=== PATIENT | female | born 1940 | race Caucasian/White ===

== ENCOUNTER 2018-07-02 09:31 | Outpatient (CLI) | payer MEDICARE, OTHER, SELFPAY ==
[2018-07-02 10:30] LABS: HCT 37.2 % (36.0-46.0); HGB 12.5 g/dL (12.0-15.5); Mean Corp. HGB Concentration 33.6 g/dL (32.0-36.0); Mean Corpuscular Hemoglobin 34.1 pg (27.0-33.0); Mean Corpuscular Volume 101.4 fL (80-95); Mean Platelet Volume 11.4 fL (8.0-11.0); Platelet Count 200 x1000/uL (130-400); RBC 3.67 m/cumm (4.00-5.20); RBC Distribution Width 14.9 % (11.7-14.6); White Blood Cell Count 9.63 k/cumm (4.4-10.8)
[2018-07-02 11:25] LABS: Anion Gap 11.8 mmol/L (3-11); BUN 41 mg/dL (7-18); CO2 22.2 mmol/L (21.0-32.0); CREATININE 1.45 mg/dL (0.55-1.02); Calcium 9.6 mg/dL (8.5-10.1); Chloride 106 mmol/L (98-107); Estimated GFR 34.92 (mL/min/1.73m2); Glucose 86 mg/dL (70-100); Magnesium 2.1 mg/dL (1.8-2.4); Sodium 140 mmol/L (136-145); TSH (W/Ref FT4) 0.12 uIU/mL (0.358-3.74); Uric Acid 4.7 mg/dL (2.6-6.0)
[2018-07-02 11:45] LABS: FREE T4 1.29 ng/dL (0.76-1.46)
[2018-07-02 11:58] LABS: Hemoglobin A1C 5.9 % (4.5-6.2)
== END 2018-07-02 09:51 ==
PROVIDERS: PCP Family Medicine; Visit Provider Family Medicine
DX: R73.01 Impaired fasting glucose (principal); E89.0 Postprocedural hypothyroidism; N18.3 Chronic kidney disease, stage 3 (moderate); E78.5 Hyperlipidemia, unspecified; E83.42 Hypomagnesemia; M10.9 Gout, unspecified
CPT/HCPCS: 36415; 80048; 85027; 83036; 83735; 84439; 84443; 84550

== ENCOUNTER → 2018-07-25 09:43 | Outpatient (BNVA) | payer MEDICARE, OTHER, SELFPAY | PROVIDERS: PCP Family Medicine; Referring Provider Family Medicine; Visit Provider Surgery | DX: L72.0 Epidermal cyst (principal); L98.0 Pyogenic granuloma; I13.0 Hypertensive heart and chronic kidney disease with heart failure and stage 1 through stage 4 chronic kidney disease, or unspecified chronic kidney disease; N18.3 Chronic kidney disease, stage 3 (moderate); I50.30 Unspecified diastolic (congestive) heart failure; J44.9 Chronic obstructive pulmonary disease, unspecified; Z87.891 Personal history of nicotine dependence | CPT/HCPCS: 99201; 99213 ==

== ENCOUNTER → 2018-09-05 10:46 | Outpatient (BNVA) | payer MEDICARE, OTHER, SELFPAY | PROVIDERS: PCP Family Medicine; Referring Provider Family Medicine; Visit Provider Surgery | DX: L98.9 Disorder of the skin and subcutaneous tissue, unspecified (principal); I12.9 Hypertensive chronic kidney disease with stage 1 through stage 4 chronic kidney disease, or unspecified chronic kidney disease; N18.3 Chronic kidney disease, stage 3 (moderate); J44.9 Chronic obstructive pulmonary disease, unspecified | CPT/HCPCS: 11402 ==

== ENCOUNTER 2018-09-05 12:19 | Outpatient (REF) | payer MEDICARE, OTHER, SELFPAY ==
--- NOTE | 2018-09-05 11:15 | SOFT_PTH ---
PATIENT: Jennifer Stark LOC: N U#:[id number] AGE/SX: 77/F ROOM: RE09/05/[address]: Christine Wright MD : 1940 BED: DIS: 09/05/2018 SPEC #: [id number] RECD: 09/05/18 12:51 STATUS: STEPHANIE REQ #: [id number] RICKY: 09/05/18 11:[address]: Christine Wright DEPT: Surgical Specimen RECD BY: Shannon Anand ENTERED: 09/05/18 12:51 SP TYPE: SOFT OTHR DR: Pham Blackwood Tissues: 1 - SOFT TISSUE MISC (INC. LIPOMA) Procedures: GROSS AND MICRO LEVEL 4 Comments: [id number]
== END 2018-09-05 12:39 ==
LOC: LBN 12:19
PROVIDERS: PCP Family Medicine; Visit Provider Surgery
DX: L98.9 Disorder of the skin and subcutaneous tissue, unspecified (principal); L94.2 Calcinosis cutis
CPT/HCPCS: 88305

== ENCOUNTER 2019-01-01 09:41 | Outpatient (CLI) | payer MEDICARE, OTHER, SELFPAY ==
[2019-01-01 11:17] LABS: Ferritin 227 ng/mL (8-388); TSH (W/Ref FT4) 0.37 uIU/mL (0.358-3.74)
[2019-01-02 13:38] LABS: Parathyroid Hormone,Intact 69 pg/ml (19-88)
== END 2019-01-01 10:01 ==
PROVIDERS: PCP Family Medicine; Visit Provider Family Medicine
DX: R53.83 Other fatigue (principal); E89.0 Postprocedural hypothyroidism; N18.9 Chronic kidney disease, unspecified
CPT/HCPCS: 36415; 82306; 82728; 83970; 84100; 84443

== ENCOUNTER 2019-01-23 01:31 | Outpatient (CLI) | payer MEDICARE, OTHER, SELFPAY ==
--- NOTE | 2019-01-23 10:00 | DI.US_ITS ---
SYMPTOMS/DIAGNOSIS: ABD AORTIC ANEURYSM, I74.4, DIASTOLIC HEART FAILURE, I50.32, MITRAL REGURGITATION, I34.0, FOLLOW UP AAA ABDOMINAL ULTRASOUND LIMITED: Limited ultrasound was performed to evaluate the abdominal aorta. Maximal aortic diameter is 36 x 32 mm in the distal aorta. Mid abdominal aorta measures about 26 mm in greatest diameter which is borderline aneurysmal. There is saccular aneurysm of the distal abdominal aorta which projects anteriorly. No evidence of leaking aneurysm or pseudoaneurysm. No gross interval change in appearance in comparison with previous examination of 01/20/18.
== END 2019-01-23 01:51 ==
PROVIDERS: PCP Family Medicine; Visit Provider Family Medicine
DX: I71.4 Abdominal aortic aneurysm, without rupture (principal); I50.32 Chronic diastolic (congestive) heart failure; I34.0 Nonrheumatic mitral (valve) insufficiency
CPT/HCPCS: 76775

== ENCOUNTER 2019-01-28 00:49 | Outpatient (CLI) | payer MEDICARE, OTHER, SELFPAY ==
--- NOTE | 2019-01-28 14:15 | MERGE_ITS ---
*[facility]* *[facility]* [address] [place] [address] Date of study: 01/28/2019 Transthoracic Echocardiography M-mode, complete 2D, complete spectral Doppler, and color Doppler *STUDY CONCLUSIONS* Summary: 1. Left ventricle: The cavity size was normal. There was moderate concentric hypertrophy. Systolic function was normal. The estimated ejection fraction was 60-65%. Wall motion was normal; there were no regional wall motion abnormalities. Findings consistent with diastolic dysfunction. 2. Aortic valve: There was very mild stenosis. There was mild to moderate regurgitation. Peak velocity (S): 1.5m/sec. VTI ratio of LVOT to aortic valve: 0.56. Valve area (VTI): 1.8cm^2. 3. Mitral valve: Mild thickening and calcification, consistent with rheumatic disease. There was mild to moderate regurgitation. 4. Left atrium: The atrium was mildly dilated. 5. Right ventricle: The cavity size was normal. Wall thickness was normal. Systolic function was normal. *PATIENT PRESENTATION* Height: 157.5cm ((62in) ) S/D Pressure: 122 / 72 Weight: 65.8kg ((144.7lb) ) BSA: 1.71m^2 Test start time: 02:20 PM. Test stop time: 03:20 PM. ORDERING Pham Blackwood REFERRING Pham Blackwood PERFORMING Unknown PERFORMING [facility] SPINDLE TESTER RT Vaishnavi AngelR)(PETTY)TREY *PROCEDURE DATA* Procedure information: The patient was identified by two identifiers. This study was interpreted by [facility]. Pertinent images and digital data are archived for permanent storage and are available for subsequent review. Comparison was made to the study of 01/23/2018. Study status: Routine. Transthoracic echocardiography. M-mode, complete 2D, complete spectral Doppler, and color Doppler. A Transthoracic Echocardiogram was performed. Scanning was performed from the parasternal, apical, subcostal, and suprasternal notch acoustic windows. Images were obtained using an [id number] cardiac ultrasound machine. Image quality was adequate. Study completion: The patient tolerated the procedure well. There were no complications. History: PMH: Aortic stenosis , diastolic HF, mitral regurgitation moderate. I35.0, i50.32, i34.0. *CARDIAC ANATOMY* Left ventricle: The cavity size was normal. There was moderate concentric hypertrophy. Systolic function was normal. The estimated ejection fraction was 60-65%. Wall motion was normal; there were no regional wall motion abnormalities. Findings consistent with diastolic dysfunction. There was no evidence of elevated ventricular filling pressure by Doppler parameters. Aortic valve: Trileaflet; mildly thickened, mildly calcified leaflets. Mobility was not restricted. Doppler: There was very mild stenosis. There was mild to moderate regurgitation. VTI ratio of LVOT to aortic valve: 0.56. Valve area (VTI): 1.8cm^2. Indexed valve area (VTI): 1cm^2/m^2. Peak velocity ratio of LVOT to aortic valve: 0.6. Valve area (Vmax): 1.9cm^2. Indexed valve area (Vmax): 1.1cm^2/m^2. Mean velocity ratio of LVOT to aortic valve: 0.58. Valve area (Vmean): 1.8cm^2. Indexed valve area (Vmean): 1.1cm^2/m^2. Mean gradient (S): 5.2mm Hg. Peak gradient (S): 9.6mm Hg. Aorta: Aortic root: The aortic root was normal in size. Ascending aorta: The ascending aorta was mildly dilated. Mitral valve: Mild thickening and calcification, consistent with rheumatic disease. Mobility was not restricted. Doppler: Transvalvular velocity was within the normal range. There was no evidence for stenosis. There was mild to moderate regurgitation. Valve area by pressure half-time: 1.9cm^2. Indexed valve area by pressure half-time: 1.1cm^2/m^2. Peak gradient (D): 2.3mm Hg. Left atrium: The atrium was mildly dilated. Right ventricle: The cavity size was normal. Wall thickness was normal. Systolic function was normal. Pulmonic valve: The pulmonary valve appears to be grossly normal. Doppler: Transvalvular velocity was within the normal range. There was no evidence for stenosis. There was no significant regurgitation. Peak gradient (S): 2.7mm Hg. Tricuspid valve: Structurally normal valve. Doppler: Transvalvular velocity was within the normal range. There was no evidence for stenosis. There was mild regurgitation. Pulmonary artery: Pulmonary systolic pressure was within the normal range, in the range of 30mm Hg to 35mm Hg. Right atrium: The atrium was normal in size. Pericardium: There was no pericardial effusion. Systemic veins: Inferior vena cava: Well visualized. The vessel was patent and normal in size. The respirophasic diameter changes were in the normal range (greater than or equal to 50%). Baseline ECG: Normal sinus rhythm. Measurements Left ventricle Value 01/22/2018 Reference LV ID, ED, PLAX 3.9 cm 4.4 3.5 - 6.0 LV ID, ES, PLAX 2.5 cm 3.3 2.1 - 4.0 LV PW thickness, ED, PLAX 1.3 cm 1.4 LV end-diastolic volume, 69 ml 82 1-p A2C LV ejection fraction, 1-p 66 % 50 A2C LV end-diastolic volume, 63 ml 50 1-p A4C LV ejection fraction, 1-p 61 % 42 A4C LV e', lateral 0.042 m/sec LV E/e', lateral 18 LV e', medial 0.031 m/sec 0.038 LV E/e', medial 24 29 LV e', average 0.037 m/sec LV E/e', average 21 Ventricular septum Value 01/22/2018 Reference IVS thickness, ED, PLAX 1.3 cm 1.4 LVOT Value 01/22/2018 Reference LVOT ID, A-P 2.0 cm 2.0 LVOT area 3.2 cm^2 3.2 LVOT peak velocity, S 0.92 m/sec 0.96 LVOT mean velocity, S 0.62 m/sec 0.65 LVOT VTI, S 19.5 cm 19.6 LVOT peak gradient, S 3.4 mm Hg 3.7 LVOT mean gradient, S 1.8 mm Hg 2 Stroke volume (SV), LVOT 62 ml 63 DP Stroke index (SV/bsa), 36 ml/m^2 36 LVOT DP Aortic valve Value 01/22/2018 Reference Aortic valve peak 1.5 m/sec 1.5 velocity, S Aortic valve mean 1.08 m/sec 1.04 velocity, S Aortic valve VTI, S 35.0 cm 31.4 Aortic mean gradient, S 5.2 mm Hg 4.9 Aortic peak gradient, S 9.6 mm Hg VTI ratio, LVOT/AV 0.56 0.62 Aortic valve area, VTI 1.8 cm^2 2 Velocity ratio, peak, 0.6 0.62 LVOT/AV Aortic valve area, peak 1.9 cm^2 2 velocity Velocity ratio, mean, 0.58 0.63 LVOT/AV Aortic valve area, mean 1.8 cm^2 2 velocity Aortic valve area/bsa, 1.1 cm^2/m^2 1.1 mean velocity Aortic regurg deceleration 443 cm/s^2 389 Aortic regurg pressure 273 ms 302 half-time Aorta Value 01/22/2018 Reference Aortic root ID, ED 3.6 cm 3.6 Ascending aorta ID, A-P, S 4.0 cm 3.9 Left atrium Value 01/22/2018 Reference LA area, ES, A4C 22.6 cm^2 20.3 8.8 - 23.4 LA area, ES, A2C 19 cm^2 21 LA volume/bsa, ES, 1-p A4C 48 ml/m^2 43 LA volume, ES, 2-p 64 ml 72 LA volume/bsa, ES, 2-p 37 ml/m^2 41 Mitral valve Value 01/22/2018 Reference Mitral E-wave peak 0.76 m/sec 1.13 velocity Mitral A-wave peak 1.44 m/sec 1.78 velocity Mitral deceleration time (H) 394 ms 222 150 - 230 Mitral pressure half-time 114 ms 64 Mitral peak gradient, D 2.3 mm Hg 5.1 Mitral E/A ratio, peak 0.52 0.64 Mitral valve area, PHT, DP 1.9 cm^2 3.4 Pulmonary veins Value 01/22/2018 Reference Pulmonary vein peak 0.36 m/sec 0.51 velocity, S Pulmonary vein peak 0.23 m/sec 0.37 velocity, D Pulmonary vein velocity 1.56 1.37 ratio, peak, S/D Pulmonary vein A-wave 0.54 m/sec 0.29 reversal peak velocity Tricuspid valve Value 01/22/2018 Reference Tricuspid regurg peak 2.7 m/sec 2.9 velocity Tricuspid peak RV-RA 28.4 mm Hg 33.6 gradient Right atrium Value 01/22/2018 Reference RA area, ES, A4C 17.9 cm^2 17.2 8.3 - 19.5 Pulmonic valve Value 01/22/2018 Reference Pulmonic peak gradient, S 2.7 mm Hg 3.1 Legend: (L) and (H) timothy values outside specified reference range. I have personally reviewed the images and have reviewed and edited the reported findings. Electronically signed by Junior Cantu 01/28/2019 16:14
== END 2019-01-28 01:09 ==
PROVIDERS: PCP Family Medicine; Visit Provider Family Medicine
DX: I08.0 Rheumatic disorders of both mitral and aortic valves (principal); I50.32 Chronic diastolic (congestive) heart failure; I51.7 Cardiomegaly
CPT/HCPCS: 93306

== ENCOUNTER 2019-04-13 08:41 | Outpatient (CLI) | payer MEDICARE, OTHER, SELFPAY | END 2019-04-13 09:01 | PROVIDERS: PCP Family Medicine; Visit Provider Internal Medicine Interventional Cardiology | DX: I08.0 Rheumatic disorders of both mitral and aortic valves (principal); I50.9 Heart failure, unspecified; I13.0 Hypertensive heart and chronic kidney disease with heart failure and stage 1 through stage 4 chronic kidney disease, or unspecified chronic kidney disease; N18.3 Chronic kidney disease, stage 3 (moderate); J44.9 Chronic obstructive pulmonary disease, unspecified; Z87.891 Personal history of nicotine dependence | CPT/HCPCS: 99214; 99213 ==

== ENCOUNTER 2019-07-03 10:23 | Outpatient (CLI) | payer MEDICARE, OTHER, SELFPAY ==
[2019-07-03 11:24] LABS: HCT 40.9 % (36.0-46.0); HGB 13.4 g/dL (12.0-15.5); Mean Corp. HGB Concentration 32.8 g/dL (32.0-36.0); Mean Corpuscular Hemoglobin 33.8 pg (27.0-33.0); Mean Platelet Volume 11.5 fL (8.0-11.0); Platelet Count 231 x1000/uL (130-400); RBC 3.97 m/cumm (4.00-5.20); White Blood Cell Count 10.25 k/cumm (4.4-10.8)
[2019-07-03 12:00] LABS: Anion Gap 12.5 mmol/L (3-11); BUN 28 mg/dL (7-18); CO2 22.5 mmol/L (21.0-32.0); CREATININE 1.39 mg/dL (0.55-1.02); Calcium 9.8 mg/dL (8.5-10.1); Chloride 106 mmol/L (98-107); Estimated GFR 36.57 (mL/min/1.73m2); Glucose 85 mg/dL (70-100); PHOSPHORUS 4.4 mg/dL (2.6-4.7); Potassium 5.2 mmol/L (3.5-5.1); Sodium 141 mmol/L (136-145); TSH (W/Ref FT4) 0.19 uIU/mL (0.36-3.74)
[2019-07-03 13:20] LABS: FREE T4 1.26 ng/dL (0.76-1.46)
[2019-07-03 14:05] LABS: Hemoglobin A1C 5.6 % (4.5-6.2)
== END 2019-07-03 10:43 ==
PROVIDERS: PCP Family Medicine; Visit Provider Family Medicine
DX: R73.01 Impaired fasting glucose (principal); E89.0 Postprocedural hypothyroidism; N18.3 Chronic kidney disease, stage 3 (moderate)
CPT/HCPCS: 36415; 80048; 85027; 83036; 84100; 84439; 84443

== ENCOUNTER 2019-10-15 10:18 | Outpatient (CLI) | payer MEDICARE, OTHER, SELFPAY ==
[2019-10-15 12:14] LABS: TSH (W/Ref FT4) 2.55 uIU/mL (0.36-3.74)
== END 2019-10-15 10:38 ==
PROVIDERS: PCP Family Medicine; Visit Provider Family Medicine
DX: E89.0 Postprocedural hypothyroidism (principal)
CPT/HCPCS: 36415; 84443

== ENCOUNTER 2020-04-25 01:59 | Outpatient (CLI) | payer MEDICARE, OTHER, SELFPAY ==
[2020-04-25 12:15] LABS: HCT 37.6 % (36.0-46.0); HGB 12.3 g/dL (11.2-15.7); MCH 33.8 pg (27.0-33.0); MCHC 32.7 % (32.0-36.0); MCV 103.3 fL (80-95); MPV 10.5 fL (8.0-11.0); Platelet Count 233 10^3/uL (130-400); RBC 3.64 10^6/uL (3.93-5.22); RDW 14.9 % (11.7-14.6); RDW-SD 56.8 fL; WBC 11.05 10^3/uL (4.4-10.8)
[2020-04-25 12:24] LABS: Hemoglobin A1C 5.6 % (3.8-5.6)
[2020-04-25 13:33] LABS: Anion Gap 10.1 mmol/L (3-11); BUN 37 mg/dL (7-18); CO2 23.9 mmol/L (21.0-32.0); CREATININE 1.52 mg/dL (0.55-1.02); Calcium 9.4 mg/dL (8.5-10.1); Chloride 102 mmol/L (98-107); Estimated GFR 32.91 (mL/min/1.73m2); Glucose 99 mg/dL (74-106); Potassium 5.6 mmol/L (3.5-5.1); Sodium 136 mmol/L (136-145); TSH (W/Ref FT4) 3.72 uIU/mL (0.36-3.74)
== END 2020-04-25 02:19 ==
PROVIDERS: PCP Family Medicine; Visit Provider Family Medicine
DX: E89.0 Postprocedural hypothyroidism (principal); R73.03 Prediabetes; N18.3 Chronic kidney disease, stage 3 (moderate)
CPT/HCPCS: 36415; 80048; 85027; 83036; 84443

== ENCOUNTER 2020-05-18 03:27 | Outpatient (CLI) | payer MEDICARE, OTHER, SELFPAY ==
[2020-05-18 14:29] LABS: Anion Gap 7.9 mmol/L (3-11); BUN 29 mg/dL (7-18); CO2 22.1 mmol/L (21.0-32.0); CREATININE 1.43 mg/dL (0.55-1.02); Calcium 9.1 mg/dL (8.5-10.1); Chloride 99 mmol/L (98-107); Estimated GFR 35.31 (mL/min/1.73m2); Glucose 108 mg/dL (74-106); Sodium 129 mmol/L (136-145); Vitamin B12 600 pg/mL (193-986)
[2020-05-18 14:38] LABS: Folate > 20.0 ng/mL (8.6-20.0); Potassium 6.3 mmol/L (3.5-5.1)
== END 2020-05-18 03:47 ==
PROVIDERS: PCP Family Medicine; Visit Provider Family Medicine
DX: R53.83 Other fatigue (principal); E87.5 Hyperkalemia; N18.3 Chronic kidney disease, stage 3 (moderate)
CPT/HCPCS: 80048; 82607; 82746

== ENCOUNTER 2020-06-06 03:39 | Outpatient (CLI) | payer MEDICARE, OTHER, SELFPAY ==
[2020-06-06 11:52] LABS: Anion Gap 8.8 mmol/L (3-11); BUN 20 mg/dL (7-18); CO2 27.2 mmol/L (21.0-32.0); CREATININE 1.31 mg/dL (0.55-1.02); Calcium 9.3 mg/dL (8.5-10.1); Chloride 103 mmol/L (98-107); Estimated GFR 39.06 (mL/min/1.73m2); Glucose 83 mg/dL (74-106); Potassium 4.4 mmol/L (3.5-5.1); Sodium 139 mmol/L (136-145)
== END 2020-06-06 03:59 ==
PROVIDERS: PCP Family Medicine; Visit Provider Family Medicine
DX: E87.5 Hyperkalemia (principal)
CPT/HCPCS: 36415; 80048

== ENCOUNTER 2021-01-04 03:25 | Outpatient (CLI) | payer MEDICARE, OTHER, SELFPAY ==
[2021-01-04 13:26] LABS: HGB 14.7 g/dL (11.2-15.7); MCH 32.8 pg (27.0-33.0); MCHC 33.4 % (32.0-36.0); MCV 98.2 fL (80-95); Platelet Count 259 10^3/uL (130-400); RBC 4.48 10^6/uL (3.93-5.22); RDW 15.3 % (11.7-14.6); RDW-SD 54.4 fL; WBC 10.52 10^3/uL (4.4-10.8)
[2021-01-04 13:36] LABS: ESR 65 mm//hr (0-30)
[2021-01-04 13:53] LABS: Hemoglobin A1C 5.6 % (<5.7)
[2021-01-04 14:17] LABS: ALT 16 U/L (14-59); AST 16 U/L (15-37); Albumin 3.1 g/dL (3.4-5.0); Alkaline Phosphatase 72 U/L (46-116); BUN 24 mg/dL (7-18); Bilirubin, Total 0.4 mg/dL (0.2-1.0); CREATININE 1.6 mg/dL (0.55-1.02); Calcium 9.3 mg/dL (8.5-10.1); Chloride 104 mmol/L (98-107); Estimated GFR 30.94 (mL/min/1.73m2); Folate > 20.0 ng/mL (8.6-20.0); Glucose 141 mg/dL (74-106); Magnesium 2.4 mg/dL (1.8-2.4); Potassium 4.1 mmol/L (3.5-5.1); Sodium 139 mmol/L (136-145); TSH (W/Ref FT4) 5.24 uIU/mL (0.36-3.74); Total Protein 7.4 g/dL (6.4-8.2); Vitamin B12 617 pg/mL (193-986)
[2021-01-04 14:34] LABS: FREE T4 1.08 ng/dL (0.76-1.46)
== END 2021-01-04 03:26 | disposition home or self-care (01) ==
LOC: LBO 03:25
PROVIDERS: PCP Family Medicine; Visit Provider Family Medicine
DX: I10 Essential (primary) hypertension (principal); R73.03 Prediabetes; R26.89 Other abnormalities of gait and mobility; R27.0 Ataxia, unspecified; E89.0 Postprocedural hypothyroidism; N18.30 Chronic kidney disease, stage 3 unspecified
CPT/HCPCS: 36415; 80053; 85027; 85652; 82607; 82746; 83036; 83735; 84439; 84443

== ENCOUNTER 2021-07-19 04:43 | Outpatient (CLI) | payer MEDICARE, OTHER, SELFPAY ==
[2021-07-19 16:59] LABS: Hemoglobin A1C 5.6 % (<5.7)
== END 2021-07-19 04:44 | disposition home or self-care (01) ==
LOC: LBO 04:43
PROVIDERS: PCP Family Medicine; Visit Provider Family Medicine
DX: E03.9 Hypothyroidism, unspecified (principal); R73.03 Prediabetes; N18.30 Chronic kidney disease, stage 3 unspecified; M10.9 Gout, unspecified
CPT/HCPCS: 36415; 80048; 83036; 84443; 84550

== ENCOUNTER 2021-08-10 19:13 | Outpatient (REF) | payer MEDICARE, OTHER, SELFPAY ==
[2021-08-10 19:45] LABS: Anion Gap 13.1 mmol/L (3-11); BUN 26 mg/dL (7-18); CO2 23.9 mmol/L (21.0-32.0); CREATININE 1.8 mg/dL (0.55-1.02); Calcium 9.4 mg/dL (8.5-10.1); Chloride 103 mmol/L (98-107); Glucose 130 mg/dL (74-106); Potassium 4.2 mmol/L (3.5-5.1); Sodium 140 mmol/L (136-145); Uric Acid 5.2 mg/dL (2.6-6.0)
== END 2021-08-10 19:14 | disposition home or self-care (01) ==
LOC: LBN 19:13
PROVIDERS: PCP Family Medicine; Visit Provider Family Medicine
DX: M10.9 Gout, unspecified (principal); E89.0 Postprocedural hypothyroidism; N18.30 Chronic kidney disease, stage 3 unspecified; R73.03 Prediabetes; I50.32 Chronic diastolic (congestive) heart failure
CPT/HCPCS: 80048; 84550

== ENCOUNTER 2021-08-29 02:52 | Outpatient (CLI) | payer MEDICARE, OTHER, SELFPAY ==
[2021-08-29 17:21] LABS: HCT 39.8 % (36.0-46.0); HGB 12.7 g/dL (11.2-15.7); MCH 32.1 pg (27.0-33.0); MCHC 31.9 % (32.0-36.0); MCV 100.5 fL (80-95); MPV 10.8 fL (8.0-11.0); Platelet Count 267 10^3/uL (130-400); RBC 3.96 10^6/uL (3.93-5.22); RDW 15.9 % (11.7-14.6); RDW-SD 58.7 fL; WBC 13.31 10^3/uL (4.4-10.8)
[2021-08-29 18:22] LABS: Iron 52 ug/dL (50-170); Total Iron Binding Capacity 315 ug/dL (250-450); Transferrin Sat 17 % (15-50)
[2021-08-29 18:27] LABS: COMMENT (LAB VIEW ONLY) 61.36 mg/dL
[2021-08-29 18:39] LABS: Anion Gap 11.6 mmol/L (3-11); BUN 26 mg/dL (7-18); CO2 25.4 mmol/L (21.0-32.0); CREATININE 1.6 mg/dL (0.55-1.02); Calcium 9.1 mg/dL (8.5-10.1); Chloride 100 mmol/L (98-107); Estimated GFR 30.94 (mL/min/1.73m2); Ferritin 136 ng/mL (8-252); Glucose 89 mg/dL (74-106); Potassium 4.4 mmol/L (3.5-5.1); Sodium 137 mmol/L (136-145)
[2021-08-29 18:55] LABS: PHOSPHORUS 4.5 mg/dL (2.6-4.7)
[2021-08-31 01:38] LABS: Vitamin D 25 Total 21.4 ng/mL (30-100)
[2021-08-31 09:13] LABS: Parathyroid Hormone,Intact 156 pg/mL (19-88)
== END 2021-08-29 02:53 | disposition home or self-care (01) ==
LOC: LBO 02:52
PROVIDERS: PCP Family Medicine; Visit Provider Family Medicine
DX: N18.4 Chronic kidney disease, stage 4 (severe) (principal)
CPT/HCPCS: 36415; 80048; 82306; 85027; 82043; 82570; 82728; 83540; 83550; 83970; 84100

== ENCOUNTER 2021-08-30 06:51 | Inpatient (IN) | payer MEDICARE, OTHER, SELFPAY ==
[2021-08-30] VITALS (63 sets, daily range): BP systolic 128–187; BP diastolic 64–95; PULSE 56–102; RESP 11–30; TEMP 35.2–36.6; O2SAT 90–98
--- NOTE | 2021-08-30 06:45 | RT.EKG_ITS ---
APPROVED REPORT Exam: Resting ECG Reason for Exam: sob Patient Location: E HR:81 bpm ECG Measurements Heart Rate 81 AXIS WY [id number] P 0 QRSd 86 QRS -18 QT 397 T 15 QTc 460 Conclusion AV dissociation...[place] variation>15% significant motion artifact but no stemi
--- NOTE | 2021-08-30 07:00 | DI.RAD_ITS ---
Exam(s) XR PORTABLE CHEST AP EXAM: XR PORTABLE CHEST AP CLINICAL HISTORY: sob, chf, cough TECHNIQUE: 2D digital imaging was performed of the chest. One image was obtained. An AP view was ob tained. COMPARISON: CR RIGHT RIBS TO INCLUDE CXR from 06/01/2013 CR RIGHT RIBS TO INCLUDE CXR from 06/01/2013 FINDINGS: MEDIASTINUM: Normal. HEART: Upper limits of normal in size. PULMONARY VASCULATURE: There is pulmonary venous congestion. LUNGS: Bilateral interstitial prominence is present. No focal consolidating infiltrate is seen. PLEURAL SPACE: No pleural effusion or pneumothorax. BONE:Within normal limits for the patient's age. OTHER FINDINGS:Normal. IMPRESSION: 1. Pulmonary venous congestion with bilateral interstitial edema. 2. No focal consolidating infiltrate. DATA REPOSITORY: RADIATION DOSE DELIVERED:
[2021-08-30] MEDS: Aspirin 81 MG CHEW 324 MG CH (07:20)
[2021-08-30 07:40] LABS: Source Nasal/Nares
--- NOTE | 2021-08-30 07:42 | W.ED.GENAD ---
Discharge Plan Disposition Patient Disposition: [facility] INPATIENT Condition: Improving Discharge Details Clinical Impression: Acute respiratory distress, Pulmonary edema, Acute combined systolic (congestive) and diastolic (congestive) heart failure Admit Date/Time: 08/30/21 10:11 Admit Provider: Antonietta Gipson Attending Provider: Antonietta Gipson Primary Care Provider: Pham Blackwood ED Provider: Jb Martell Discharge Data Discharge Date/Time-TO BE ENTERED AT DEPARTURE: 08/30/21 12:14 Medical Decision Making <Uriel Sparks DO - Last Filed: 08/31/21 07:24> 80-year-old female with a past medical history of renal disease, hypertension, high cholesterol, abdominal aortic aneurysm, aortic stenosis, gout, COPD, presents today for evaluation of shortness of breath. Patient states that for the last 2 weeks she has had shortness of breath. Is gradually been worsening. For the last few days she has been unable to lie flat because of feeling like she cannot breathe. [facility] was called when she was in notable respiratory distress. Upon EMS arrival the patient was satting in the high 70s. With a notable work of breathing. Patient was given 3 nitroglycerin as her blood pressure was over 200 systolic. She had notable improvement of her symptoms with this, and was brought to the ER for further management. After nitroglycerin she was titrated down to 6 L of supplemental oxygen and was saturating in the mid 90s. She is feeling much better. She denies any chest pain but does admit to mild difficulty breathing. She does admit to cough over the last few days. She denies any fever or chills. She has not been vaccinated for Covid. No other complaints this time. She denies any recent leg swelling. Physical exam demonstrates well-appearing female, currently on 6 L saturating in the mid 90s. Lung sounds demonstrate crackles in the bases. Bedside ultrasound shows trace pericardial effusion, moderate ejection fraction. No significant pitting edema in the shins, she does have mild +1 pitting edema in the feet. Vascular exam is otherwise unremarkable. No evidence of significant neurovascular compromise. Symptoms appear inconsistent with AAA or dissection at this time clinically. Concern for CHF exacerbation and/or fluid overloaded secondary to cardiorenal syndrome. The patient's blood pressure is still in the 190s, with her work of breathing I do feel that starting a nitroglycerin drip is indicated at this time as she had a notable improvement with the 3 sublingual nitros. We will evaluate for concerning etiologies, monitor closely and reassess. Patient will be signed out to my colleague Dr. Jb Martell for follow-up on labs and imaging. <Jb Martell MD - Last Filed: 08/30/21 10:53> pt's labs show wbc of 15, [place] [id number] and xray on my read shows interstitial edema with possible right lower lobe infiltrate, she does state she has felt a cough intermittently, will cover her with ceftriaxone and azithromycin and IV lasix ordered. Her nitro infusion apparently started to infiltrate, will place transdermal nitro ointment. Denies any chest pain on my exam. Will obtain delta troponin. Discussed with hospitalist who accepts for admission for further observation and management ECG Data Attestation: I personally reviewed and interpreted this ECG (s) as follows: Prior ECG tracings: available for review Interpretation: significant motion artifact but sinus rhythm, rate of 81, no acute st t wave ischemic findings\ 2nd ekg sinus rhythm, rate of 70 no stemi HPI <Uriel Sparks DO - Last Filed: 08/31/21 07:24> General Date/Time Provider Initiated Documentation: 08/30/21 07:00. HPI Narrative: 80-year-old female with a past medical history of renal disease, hypertension, high cholesterol, abdominal aortic aneurysm, aortic stenosis, gout, COPD, presents today for evaluation of shortness of breath. Patient states that for the last 2 weeks she has had shortness of breath. Is gradually been worsening. For the last few days she has been unable to lie flat because of feeling like she cannot breathe. [facility] was called when she was in notable respiratory distress. Upon EMS arrival the patient was satting in the high 70s. With a notable work of breathing. Patient was given 3 nitroglycerin as her blood pressure was over 200 systolic. She had notable improvement of her symptoms with this, and was brought to the ER for further management. After nitroglycerin she was titrated down to 6 L of supplemental oxygen and was saturating in the mid 90s. She is feeling much better. She denies any chest pain but does admit to mild difficulty breathing. She does admit to cough over the last few days. She denies any fever or chills. She has not been vaccinated for Covid. No other complaints this time. She denies any recent leg swelling. Related Data Home Medications Medication Instructions Recorded Confirmed allopurinol 100 mg PO BID NS 04/03/13 08/30/21 aspirin 81 mg PO DAILY NS 04/03/13 08/30/21 atenolol 100 mg PO DAILY #1 NS 04/03/13 08/30/21 [id number]-Sw-hyqm-minerals 1 ea PO DAILY NS 04/03/13 08/30/21 [Essential Daily] budesonide 3 mg 3 mg PO DAILY PRN 07/18/18 08/30/21 capsule,delayed,extended release levothyroxine 88 mcg capsule 88 mcg PO DAILY 07/18/18 08/30/21 magnesium chloride 71.5 mg 71.5 mg PO BID tab 07/18/18 08/30/21 (magnesium chloride) tablet,delayed release Allergies Allergy/AdvReac Type Severity Reaction Status Date / Time lisinopril AdvReac Intermediate cough Unverified 08/30/21 07:06 General Stated Complaint: SOB RASHIDA: 2 Review of Systems <Uriel Sparks DO - Last Filed: 08/31/21 07:24> All systems reviewed & are unremarkable except as noted in HPI and below PFSH <Uriel Sparks DO - Last Filed: 08/31/21 07:24> Active Problem List (Updated 08/31/21 @ 07:24 by Uriel Sparks DO) Hypertensive emergency (Acute) Tobacco abuse (Acute) Discharge planning issues (Acute) DVT prophylaxis (Acute) Chest discomfort (Acute) Acute combined systolic (congestive) and diastolic (congestive) heart failure (Acute) Acute respiratory failure with hypoxia (Acute) Acute respiratory distress (Acute) Pulmonary edema (Acute) Medical History (Updated 08/31/21 @ 07:24 by Uriel Sparks DO) Abdominal aortic aneurysm Aortic stenosis Chronic insomnia Collagenous colitis Diastolic heart failure Elevated sed rate Gout History of hepatitis History of thyroid cancer History of tobacco abuse Hyperlipidemia Hypermagnesemia Hypertension Impaired fasting glucose Kidney disease, chronic, stage III (GFR 30-59 ml/min) Macrocytosis Mitral regurgitation 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 Surgical History (Updated 08/30/21 @ 17:46 by Antonietta Gipson MD) H/O excision of epidermal inclusion cyst Family History (Updated 08/30/21 @ 17:46 by Antonietta Gipson MD) Brother Cancer prostate cancer Brother Heart disease Brother ESRD (end stage renal disease) Social History (Updated 08/30/21 @ 17:47 by Antonietta Gipson MD) Smoking/Tobacco Use Status: Current every day Tobacco Type: cigarettes Smoking packs per day: 0.5 Smoking cigarettes per day: 10.0 Years smoked: 61 Smoking pack-years: 30.50 Tobacco: How many years used: 61 Counseling given: provider counseling and support medications Smoking risk assessment performed?: Yes Alcohol Intake: never Drug use: Never Substance use type: does not use Do you feel safe at home: Yes Do you feel safe in your relationship?: Yes Exam <Uriel Sparks DO - Last Filed: 08/31/21 07:24> Narrative Exam Narrative: 1.Const: Well-nourished, Well-developed, appearing stated age 2.Eyes: PERRL, no conjunctival injection, and symmetrical lids. 3.ENT: Atraumatic external nose and ears. Moist MM. Neck: Symmetric, trachea midline, No thyromegaly. 4.CVS: +S1/S2, No murmurs or gallops. Peripheral pulses 2+ and equal in all extremities. Brisk capillary refill in all extremities. 5.RESP: Unlabored respiratory effort. Minimal crackles in the bases, no wheezes or rhonchi. 6.GI: Soft, Nontender/Nondistended, No hepatosplenomegaly. No guarding or rebound. No bounding or pulsatile abdomen. 7.MSK: Normocephalic/Atraumatic, Extremities w/o deformity or ttp No cyanosis or clubbing, Normal movement of all extremities, no pitting edema in lower extremities. Minimal trace pitting edema in the feet though. 8.Skin: Warm, Dry. No rashes or lesions. 9.Neuro: roll bucker II-XII grossly intact. Sensation grossly intact, no focal neurologic deficits. 10.Psych: (AAO) x3. Appropriate mood and affect Course <Uriel Sparks DO - Last Filed: 08/31/21 07:24> Vital Signs Vital signs: Vital Signs Temperature 36.2 C L 08/30/21 06:50 Pulse 81 12/08/21 06:50 Respiratory Rate 17 08/30/21 06:50 Blood Pressure 180/93 H 08/30/21 06:50 Pulse Oximetry 92 08/30/21 06:50 Temperature 36.2 C L 08/30/21 06:50 Temperature Source Skin 08/30/21 06:50 Pulse 81 08/30/21 06:50 Respiratory Rate 17 08/30/21 06:50 Respiratory Effort Non-Labored 08/30/21 07:25 Respiratory Pattern Normal 08/30/21 07:10 Blood Pressure 180/93 H 08/30/21 06:50 Blood Pressure Position Sitting 08/30/21 06:50 Pulse Oximetry 92 08/30/21 06:50 Oxygen Delivery Method Nasal Cannula 08/30/21 06:50 Oxygen Flow Rate 6 08/30/21 06:50 Pain Level 0 08/30/21 06:50 Lab/Test Results Lab/Test Results: Laboratory Tests Range/Units 08/30/21 07:05 COVID-19 Source Nasal/Nares Critical Care Time <Uriel Sparks DO - Last Filed: 08/31/21 07:24> Critical Care Time Critical Care Time: Yes Total Critical Care Time: 35 Attestation: Upon my evaluation, this patient had a high probability of imminent or life-threatening deterioration, which required my direct attention, intervention, and personal management. I have personally provided 35 minutes of critical care time exclusive of time spent on separately billable procedures. Time includes review of laboratory data, radiology results, discussion with consultants, and monitoring for potential decompensation. Interventions were performed as documented. Sign Out <Uriel Sparks DO - Last Filed: 08/31/21 07:24> Sign Out Data: Sign Out Comment: f/u labs and imaging Last updated by Uriel Sparks DO at 08/30/21 07:55
[2021-08-30 07:57] LABS: Abs Immature Grans 0.04 10^3/uL (0.0-0.06); Absolute Basophil Count 0.09 10^3/uL (0.0-0.2); Absolute Monocyte Count 0.91 10^3/uL (0.1-0.8); Basophils % 0.6; Eosinophils % 0.7; HCT 38.3 % (36.0-46.0); HGB 12.4 g/dL (11.2-15.7); Immature Grans % 0.3; Lymphocytes % 13.3; MCHC 32.4 % (32.0-36.0); MPV 10.3 fL (8.0-11.0); Neutrophils % 79.1; Nucleated RBC 0 %; Platelet Count 281 10^3/uL (130-400); RBC 3.87 10^6/uL (3.93-5.22); RDW 15.6 % (11.7-14.6); RDW-SD 56.4 fL; WBC 15.24 10^3/uL (4.4-10.8)
[2021-08-30 07:58] LABS: Absolute Eosinophil Count 0.11 10^3/uL (0.0-0.7); Absolute Lymphocyte Count 2.03 10^3/uL (1.2-3.4); Absolute Neutrophil Count 12.05 10^3/uL (1.2-6.7); BE (Venous) 2 mmol/L (-2-3); HCO3 (Venous) 26 mmol/L (23-28); O2 Sat (Venous) 68 %; TCO2 (Venous) 24 mmol/L (24-29); pCO2 (Venous) 42 mmHg (41-51); pH (Venous) 7.41 (7.31-7.41); pO2 (Venous) 35 mmHg
[2021-08-30] MEDS: nitroGLYcerin in D5W 50 MG/250 ML BTL 7.5 MG IV (08:03)
[2021-08-30 08:18] LABS: COVID-19 PCR Negative (Negative)
[2021-08-30 08:24] LABS: ALT 13 U/L (14-59); AST 14 U/L (15-37); Albumin 3.3 g/dL (3.4-5.0); Alkaline Phosphatase 67 U/L (46-116); Anion Gap 11.1 mmol/L (3-11); BUN 26 mg/dL (7-18); Bilirubin, Total 0.6 mg/dL (0.2-1.0); CO2 25.9 mmol/L (21.0-32.0); CREATININE 1.5 mg/dL (0.55-1.02); Calcium 9.2 mg/dL (8.5-10.1); Chloride 102 mmol/L (98-107); Estimated GFR 33.33 (mL/min/1.73m2); Glucose 111 mg/dL (74-106); Potassium 4.3 mmol/L (3.5-5.1); Sodium 139 mmol/L (136-145); Total Protein 7.4 g/dL (6.4-8.2)
[2021-08-30] MEDS: cefTRIAXone 2 GM/50 ML BAG IVPB (08:47)
[2021-08-30 08:55] LABS: NT-proBNP 32800 pg/mL (<300); Troponin I < 0.05 ng/mL (<0.06)
[2021-08-30] MEDS: AZITHROMYCIN 500 MG in Normal Saline 250 ML 250 MG IVPB (09:22)
[2021-08-30] MEDS: Furosemide 40 MG/4 ML VIAL IVP ×2 (09:23→16:15)
[2021-08-30] MEDS: nitroGLYcerin 2% 1 INCH/1 GM PKT TP (09:49)
--- NOTE | 2021-08-30 10:30 | RT.EKG_ITS ---
APPROVED REPORT Exam: Resting ECG Reason for Exam: chest pain Patient Location: E HR:70 bpm ECG Measurements Heart Rate 70 AXIS MO 204 P -32 QRSd 84 QRS -25 QT 454 T -2 QTc 492 Conclusion Sinus rhythm...normal P axis, V-rate 60- 99
[2021-08-30 11:49] LABS: Troponin I < 0.05 ng/mL (<0.06)
--- NOTE | 2021-08-30 11:50 | W.PM.HP.N ---
Date of service: 08/30/21 Time of Service: 11:51 Assessment and Plan Assessment and plan (1) Acute combined systolic (congestive) and diastolic (congestive) heart failure: Status: Acute Assessment and plan: Continue diuresis initiated in the ED. Systolic dysfunction and diffuse hypokinesis are new and will need ischemic workup. Monitor on tele. Trend troponins and r/o ACS. Monitor I/Os and daily weights. (2) Hypertensive emergency: Status: Acute Assessment and plan: It is not entirely clear why the patient's BP meds were discontinued, but she is proving to require them now. Resume prior home medications. The patient states that she only takes atenolol. She used to be on amlodipine and losartan and spironolactone, but was told to stop them by PCP, per her. (3) Acute respiratory failure with hypoxia: Status: Acute Assessment and plan: Due to above - as above Wean O2 as tolerated. (4) CAP (community acquired pneumonia): Status: Suspected Assessment and plan: Difficult to rule out PNA on CXR on admission and, w/ leucocytosis, agree with treating it at this time, but will check procalcitonin. (5) Chest discomfort: Status: Acute Assessment and plan: R/o ACS. Monitor on tele. Will need ischemic w/u. (6) Tobacco abuse: Status: Acute Assessment and plan: Advised to quit. Provide nicotine replacement. (7) Discharge planning issues: Status: Acute Assessment and plan: DNR/DNI (8) DVT prophylaxis: Status: Acute Assessment and plan: Enoxaparin SC History of Present Illness History of Present Illness Chief Complaint: shortness of breath in bed Narrative: Ms Stark is an 80 year old female with PMHx of chronic diastolic CHF, HTN, hyperlipidemia, tobacco abuse, who presented to [facility] ED with two weeks of shortness of breath, especially worse over the last two days. The shortness of breath was happening at rest, but was worse with laying down and with activity. She has been sleeping in a recliner. The patient describes her usual nonproductive cough and no fevers. Last night she had an episode of chest discomfort during which she felt sweaty, had palpitations, was nauseated, stated that it hurt, and thought she might faint. This is the only time she has ever had this. Her workup in the ED was consistent with acute pulmonary edema. She was hypertensive with SBP in 180s. She required 6L of O2 by PA at the time of arrival to saturate in low 90s. The patient responded to nitroglycerin and furosemide with significantly improved work of breathing. She also had evidence of leucocytosis with concerns for underlying CAP. For this she was initiated on azithromycin and ceftriaxone. She tested negative for COVID-19. She has now been weaned down to 3.5 L of O2 by PA. Hospitalist admission was requested. Review of Systems All systems reviewed & are unremarkable except as noted in HPI and below [facility] Active Problem List (Updated 08/30/21 @ 18:01 by Antonietta Gipson MD) Hypertensive emergency (Acute) Tobacco abuse (Acute) Discharge planning issues (Acute) DVT prophylaxis (Acute) Chest discomfort (Acute) Acute combined systolic (congestive) and diastolic (congestive) heart failure (Acute) Acute respiratory failure with hypoxia (Acute) Acute respiratory distress (Acute) Pulmonary edema (Acute) Medical History (Updated 08/30/21 @ 18:01 by Antonietta Gipson MD) Abdominal aortic aneurysm Aortic stenosis Chronic insomnia Collagenous colitis Diastolic heart failure Elevated sed rate Gout History of hepatitis History of thyroid cancer History of tobacco abuse Hyperlipidemia Hypermagnesemia Hypertension Impaired fasting glucose Kidney disease, chronic, stage III (GFR 30-59 ml/min) Macrocytosis Mitral regurgitation 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 Surgical History (Updated 08/30/21 @ 17:46 by Antonietta Gipson MD) H/O excision of epidermal inclusion cyst Family History (Updated 08/30/21 @ 17:46 by Antonietta Gipson MD) Brother Cancer prostate cancer Brother Heart disease Brother ESRD (end stage renal disease) Social History (Updated 08/30/21 @ 17:47 by Antonietta Gipson MD) Smoking/Tobacco Use Status: Current every day Tobacco Type: cigarettes Smoking packs per day: 0.5 Smoking cigarettes per day: 10.0 Years smoked: 61 Smoking pack-years: 30.50 Tobacco: How many years used: 61 Counseling given: provider counseling and support medications Smoking risk assessment performed?: Yes Alcohol Intake: never Drug use: Never Substance use type: does not use Do you feel safe at home: Yes Do you feel safe in your relationship?: Yes Meds Allergies and Home Medications Allergies Allergy/AdvReac Type Severity Reaction Status Date / Time lisinopril AdvReac Intermediate cough Unverified 08/30/21 07:06 Home Medications Medication Instructions Recorded Confirmed Type allopurinol 100 mg PO BID NS 04/03/13 08/30/21 History aspirin 81 mg PO DAILY NS 04/03/13 08/30/21 History atenolol 100 mg PO DAILY #1 NS 04/03/13 08/30/21 History akmfygkhafrm-Kc-mfmr-minerals 1 ea PO DAILY NS 04/03/13 08/30/21 History [Essential Daily] budesonide 3 mg 3 mg PO DAILY PRN 07/18/18 08/30/21 History capsule,delayed,extended release levothyroxine 88 mcg capsule 88 mcg PO DAILY 07/18/18 08/30/21 History magnesium chloride 71.5 mg 71.5 mg PO BID tab 07/18/18 08/30/21 History (magnesium chloride) tablet,delayed release Exam Narrative Exam Narrative: General: Very pleasant elderly female who wakes up easily when I enter the room, A&Ox3, laying in bed at about 30 degree angle with 3.5 L of O2 on, no dyspnea/tachypnea/cyanosis Neurological: A&ox3, no focal deficits Psychiatric: Appropriate speech pattern/content Skin: Visible skin intact HEENT: Atraumatic, normocephalic, EOMI, MMM, clear oropharynx, no submandibular or cervical lymphadenopathy, no goiter or JVD Cardiovascular: RRR, no m/r/g Lungs: Diminished breath sounds at B bases, no rales/rhonchi Gastrointestinal: soft, nontender, nondistended Genitourinary: deferred Extremities: no edema BLE's Results Imaging Additional studies: CXR: 1. Pulmonary venous congestion with bilateral interstitial edema. 2. No focal consolidating infiltrate. Echo: LVEF 40-45%, diffuse hypokinesis, moderate aortic regurg, moderate mitral regurgitation. EKG: NSR, HR 81, no acute ischemia EKG: HR 70, unchanged Labs Result diagrams: 08/30/21 07:50 08/30/21 07:50 Labs: Laboratory Results - last 24 hr 08/30/21 08/30/21 08/30/21 07:05 07:50 07:50 WBC 15.24 H RBC 3.87 L Hgb 12.4 Hct 38.3 MCV 99.0 H MCH 32.0 MCHC 32.4 RDW 15.6 H Plt Count 281 MPV 10.3 Immature Gran % 0.3 Neutrophils % 79.1 Lymphocytes % 13.3 Monocytes % 6.0 Eosinophils % 0.7 Basophils % 0.6 Nucleated RBC % 0 Absolute Neutrophils 12.05 H Absolute Lymphocytes 2.03 Absolute Monocytes 0.91 H Absolute Eosinophils 0.11 Absolute Basophils 0.09 VBG pH VBG pCO2 VBG pO2 VBG HCO3 VBG Total CO2 VBG O2 Saturation VBG Base Excess Sodium 139 Potassium 4.3 Chloride 102 Carbon Dioxide 25.9 Anion Gap 11.1 H BUN 26 H Creatinine 1.5 H Estimated GFR/1.73 m2 33.33 Glucose 111 H Calcium 9.2 Total Bilirubin 0.6 AST 14 L ALT 13 L Alkaline Phosphatase 67 Troponin I < 0.05 NT-Pro-B Natriuret Pep 28919 H Total Protein 7.4 Albumin 3.3 L COVID-19 Source Nasal/Nares SARS-CoV-2 (PCR) Negative 08/30/21 08/30/21 07:50 10:57 WBC RBC Hgb Hct MCV MCH MCHC RDW Plt Count MPV Immature Gran % Neutrophils % Lymphocytes % Monocytes % Eosinophils % Basophils % Nucleated RBC % Absolute Neutrophils Absolute Lymphocytes Absolute Monocytes Absolute Eosinophils Absolute Basophils VBG pH 7.41 VBG pCO2 42 VBG pO2 35 VBG HCO3 26 VBG Total CO2 24 VBG O2 Saturation 68 VBG Base Excess 2 Sodium Potassium Chloride Carbon Dioxide Anion Gap BUN Creatinine Estimated GFR/1.73 m2 Glucose Calcium Total Bilirubin AST ALT Alkaline Phosphatase Troponin I < 0.05 NT-Pro-B Natriuret Pep Total Protein Albumin COVID-19 Source SARS-CoV-2 (PCR) Last Vital Signs Temp 36.2 C L 08/30/21 06:50 Pulse 68 08/30/21 10:00 Resp 14 08/30/21 10:01 BP 142/82 H 08/30/21 10:00 Pulse Ox 95 08/30/21 10:01
[2021-08-30] MEDS: Acetaminophen 325 MG TAB PO ×2 (12:59→19:42)
[2021-08-30 14:30] LABS: Magnesium 2.5 mg/dL (1.8-2.4)
[2021-08-30] MEDS: Enoxaparin 40 MG/0.4 ML SYR SC (14:31)
[2021-08-30] MEDS: Normal Saline Flush 10 ML SYR IVP ×2 (16:15→19:42)
[2021-08-30] MEDS: Allopurinol 100 MG TAB PO (19:42)
[2021-08-30] MEDS: DOXYCYCLINE 100 MG in Normal Saline 100 ML IVPB (20:04)
[2021-08-30] MEDS: Normal Saline 500 ML 30 ML IV (20:04)
[2021-08-30 20:43] LABS: Troponin I < 0.05 ng/mL (<0.06)
[2021-08-30] MEDS: Pravastatin 20 MG TAB 10 MG PO (21:22)
[2021-08-31] VITALS (11 sets, daily range): BP systolic 133–168; BP diastolic 67–89; PULSE 57–69; RESP 14–20; TEMP 36.2–37; O2SAT 93–96
[2021-08-31] MEDS: Levothyroxine 88 MCG TAB PO (06:26)
[2021-08-31 07:52] LABS: Abs Immature Grans 0.02 10^3/uL (0.0-0.06); Absolute Basophil Count 0.11 10^3/uL (0.0-0.2); Absolute Eosinophil Count 0.15 10^3/uL (0.0-0.7); Absolute Lymphocyte Count 3.08 10^3/uL (1.2-3.4); Absolute Monocyte Count 0.79 10^3/uL (0.1-0.8); Absolute Neutrophil Count 7.01 10^3/uL (1.2-6.7); Eosinophils % 1.3; HCT 35.2 % (36.0-46.0); HGB 11.4 g/dL (11.2-15.7); Immature Grans % 0.2; Lymphocytes % 27.6; MCH 31.9 pg (27.0-33.0); MCHC 32.4 % (32.0-36.0); MCV 98.6 fL (80-95); MPV 10.4 fL (8.0-11.0); Monocytes % 7.1; Neutrophils % 62.8; Nucleated RBC 0 %; Platelet Count 267 10^3/uL (130-400); RBC 3.57 10^6/uL (3.93-5.22); RDW 15.4 % (11.7-14.6); RDW-SD 55.6 fL; WBC 11.16 10^3/uL (4.4-10.8)
[2021-08-31] MEDS: cefTRIAXone 2 GM/50 ML BAG IVPB (08:31)
[2021-08-31 08:33] LABS: Anion Gap 11.3 mmol/L (3-11); BUN 26 mg/dL (7-18); CO2 25.7 mmol/L (21.0-32.0); CREATININE 1.8 mg/dL (0.55-1.02); Calcium 9.1 mg/dL (8.5-10.1); Chloride 103 mmol/L (98-107); Glucose 84 mg/dL (74-106); Potassium 3.7 mmol/L (3.5-5.1); Sodium 140 mmol/L (136-145)
[2021-08-31] MEDS: Furosemide 40 MG/4 ML VIAL IVP ×2 (08:34→15:30)
[2021-08-31] MEDS: Spironolactone 25 MG TAB 12.5 MG PO (08:36)
[2021-08-31] MEDS: Multivitamin w/Minerals TAB 1 TAB PO (08:36)
[2021-08-31] MEDS: amLODIPine 5 MG TAB PO (08:37)
[2021-08-31] MEDS: Atenolol 50 MG TAB 100 MG PO (08:37)
[2021-08-31] MEDS: Aspirin E.C. 81 MG TABEC PO (08:37)
[2021-08-31] MEDS: Losartan 50 MG TAB 100 MG PO (08:38)
[2021-08-31] MEDS: Allopurinol 100 MG TAB PO ×2 (08:39→20:45)
[2021-08-31] MEDS: Magnesium Chloride 64 MG TABCR PO ×2 (08:39→20:44)
--- NOTE | 2021-08-31 08:51 | PDOC.CMIN ---
- If Service Date Differs Date of service: 08/31/21 Time of Service: 08:51 Care Management Initial Assess REASON FOR HOSPITALIZATION:: Acute CHF, Hypertensive Emergency, CAP PAST MEDICAL HISTORY/PAST SURGICAL HISTORY:: Active Problem List (Updated 08/30/21 @ 18:01 by Antonietta Gipson MD). Hypertensive emergency (Acute). Tobacco abuse (Acute). Discharge planning issues (Acute). DVT prophylaxis (Acute). Chest discomfort (Acute). Acute combined systolic (congestive) and diastolic (congestive) heart failure (Acute). Acute respiratory failure with hypoxia (Acute). Acute respiratory distress (Acute). Pulmonary edema (Acute). Medical History (Updated 08/30/21 @ 18:01 by Antonietta Gipson MD). Abdominal aortic aneurysm. Aortic stenosis. Chronic insomnia. Collagenous colitis. Diastolic heart failure. Elevated sed rate. Gout. History of hepatitis. History of thyroid cancer. History of tobacco abuse. Hyperlipidemia. Hypermagnesemia. Hypertension. Impaired fasting glucose. Kidney disease, chronic, stage III (GFR 30-59 ml/min). Macrocytosis. Mitral regurgitation. Post-surgical hypothyroidism. Stage 2 moderate COPD by GOLD classification. Surgical History (Updated 08/30/21 @ 17:46 by Antonietta Gipson MD). H/O excision of epidermal inclusion cyst PREVIOUS FUNCTIONAL STATUS/SOCIAL/FAMILY SUPPORTS:: Jennifer lives alone in [place]. She does not drive, however her daughter and grand daughter live next door and are very supportive. Jennifer watches her great daughters during the day. She is independent at baseline. CURRENT FUNCTIONAL STATUS:: Jennifer was lying in bed when CM met with her. She was pleasant and easily engaged in conversation. She has no concerns other than she is missing her nielson slippers, which she last saw in the ER. CM notified ER staff and they will bring them to her if they are found. ADVANCE DIRECTIVES:: On file, [facility] is Demetrice Ledesma Has patient been provided with info about the portal/API?: Yes Did the patient sign up for the portal?: No CODE STATUS:: DNR/DNI INSURANCE COVERAGE / FINANCIAL ISSUES:: [employer]. Medicare CURRENT HOME/COMMUNITY SERVICES/EQUIPMENT:: Uses a cane and walker PRN PRIMARY CARE PHYSICIAN:: Pham Blackwood POTENTIAL DISCHARGE NEEDS:: Shoes or boots if her slippers are not found. Per patient they were last seen in the ER. PATIENT/FAMILY EDUCATION NEEDS:: Review discharge instructions, limitations and plan to follow up with community providers. Ask me three. TRANSPORTATION:: via private vehicle with family. PLAN:: Anticipate Jennifer will be discharged home when medically cleared by provider. She is open to the idea of new [facility] services (if needed.) She will transport via private vehicle with family. Will follow up with community providers and discharge plan of care as prescribed.
--- NOTE | 2021-08-31 09:19 | W.CARDCONSUL ---
Date of service: 08/31/21 Time of Service: 09:19 Assessment and Plan Assessment and plan (1) Acute combined systolic (congestive) and diastolic (congestive) heart failure: Status: Acute (2) Cardiomyopathy: Status: Acute (3) Hypertension: Status: Acute Assessment and plan: Patient presented with uncontrolled hypertension, and decompensated heart failure. Her echocardiogram shows left ventricular dysfunction, EF 40 to 45%. This is new compared to her prior echo in 2019. I suspect some of this may be on the basis of chronically uncontrolled hypertension but that is difficult to prove I would recommend that she be treated with guideline directed medical therapy. Her beta-ba should be changed from atenolol to either metoprolol succinate, carvedilol, or bisoprolol She should be treated with an JO inhibitor or angiotensin receptor ba. In the past she took losartan and that would be a reasonable choice She may require maintenance diuretic therapy. This needs to be determined. Eventually it would be reasonable to do an ischemic evaluation, but I would not consider this urgent or necessary to do as an inpatient Thank you for the opportunity to participate in the care of this patient. History of Present Illness History of Present Illness Chief Complaint: Shortness of breath Narrative: This is an 80-year-old woman who presented to the hospital with shortness of breath. She reports that she was in her usual state of health until a week or 2 prior to admission when she began to note difficulty breathing. This was progressive, to the point where she was short of breath at rest and unable to lie flat. She called for medical assistance and was found to be in acute respiratory distress, severely hypertensive. She was treated with sublingual nitroglycerin and subsequently brought to the emergency room. She has been diuresed. Her blood pressure is better. She no longer is short of breath. She denies experiencing any chest discomfort The patient carries a diagnosis of diastolic heart failure for which she was followed by cardiology for years. Her last visit was in 2019. An echocardiogram done at that time showed an ejection fraction of 60 to 65%, diastolic dysfunction, aortic valve sclerosis without stenosis, and a dilated ascending aorta measuring 4.0 cm She has longstanding hypertension, mild COPD due to prior tobacco use, elevated cholesterol. She does not have any known coronary artery disease and a myocardial perfusion imaging study last done in 2011 was negative Reportedly the patient's antihypertensive therapy was discontinued by primary care. She used to be on losartan and amlodipine. Atenolol was continued and is still being administered EKG on presentation was unremarkable, basically normal There is no enzyme evidence of myocardial necrosis An echocardiogram was repeated. This was a technically difficult study but reported that the ejection fraction was mildly reduced to 40 to 45%, global hypokinesis. The left atrium was moderately dilated. The aortic valve is again sclerotic without stenosis. There was mild to moderate aortic regurgitation, moderate mitral regurgitation, and the ascending aorta was again mildly dilated now measuring 4.1 cm Consults Consult date: 08/31/21 Requesting physician: Antonietta Gipson Review of Systems Cardiovascular Cardiovascular: Denies chest pain, Denies chest pain at rest, Denies chest pain with activity, Denies leg edema, Reports dyspnea, Reports dyspnea on exertion, Reports orthopnea and Reports paroxysmal nocturnal dyspnea Respiratory Respiratory: Reports dyspnea and Reports dyspnea on exertion [facility] Active Problem List Hypertensive emergency (Acute) Tobacco abuse (Acute) Discharge planning issues (Acute) DVT prophylaxis (Acute) Chest discomfort (Acute) Acute combined systolic (congestive) and diastolic (congestive) heart failure (Acute) Acute respiratory failure with hypoxia (Acute) Acute respiratory distress (Acute) Pulmonary edema (Acute) Medical History Abdominal aortic aneurysm Aortic stenosis Chronic insomnia Collagenous colitis Diastolic heart failure Elevated sed rate Gout History of hepatitis History of thyroid cancer History of tobacco abuse Hyperlipidemia Hypermagnesemia Hypertension Impaired fasting glucose Kidney disease, chronic, stage III (GFR 30-59 ml/min) Macrocytosis Mitral regurgitation 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 Surgical History H/O excision of epidermal inclusion cyst Family History Brother Cancer prostate cancer Brother Heart disease Brother ESRD (end stage renal disease) Social History Smoking/Tobacco Use Status: Current every day Tobacco Type: cigarettes Smoking packs per day: 0.5 Smoking cigarettes per day: 10.0 Years smoked: 61 Smoking pack-years: 30.50 Tobacco: How many years used: 61 Counseling given: provider counseling and support medications Smoking risk assessment performed?: Yes Alcohol Intake: never Drug use: Never Substance use type: does not use Do you feel safe at home: Yes Do you feel safe in your relationship?: Yes Exam Const Other: Elderly woman no acute distress normal weight, mildly hard of hearing Eyes EOM: EOM intact bilaterally Neck Other: No neck vein distention, normal carotid upstrokes, no bruits Chest Other: Decreased breath sounds and fine crackles at the bases Cardio Jugular venous pressure: no JVD Rate: regular rate Rhythm: regular rhythm Heart Sounds: S1 normal and S2 normal Other: 2/6 systolic ejection quality murmur no gallop Skin Other: Warm and dry Extrem Other: No peripheral edema Results Last Vital Signs Temp 36.6 C 08/31/21 07:35 Pulse 69 08/31/21 07:35 Resp 18 08/31/21 07:35 BP 168/80 H 08/31/21 07:35 Pulse Ox 96 08/31/21 08:04 Labs Result diagrams: 08/31/21 07:29 08/31/21 07:29 Labs: Laboratory Results - last 24 hr 08/30/21 08/30/21 08/30/21 08:40 10:57 20:11 WBC RBC Hgb Hct MCV MCH MCHC RDW Plt Count MPV Immature Gran % Neutrophils % Lymphocytes % Monocytes % Eosinophils % Basophils % Nucleated RBC % Absolute Neutrophils Absolute Lymphocytes Absolute Monocytes Absolute Eosinophils Absolute Basophils Sodium Potassium Chloride Carbon Dioxide Anion Gap BUN Creatinine Estimated GFR/1.73 m2 Glucose Calcium Magnesium 2.5 H Troponin I < 0.05 < 0.05 TSH 08/31/21 08/31/21 07:29 07:29 WBC 11.16 H RBC 3.57 L Hgb 11.4 Hct 35.2 L MCV 98.6 H MCH 31.9 MCHC 32.4 RDW 15.4 H Plt Count 267 MPV 10.4 Immature Gran % 0.2 Neutrophils % 62.8 Lymphocytes % 27.6 Monocytes % 7.1 Eosinophils % 1.3 Basophils % 1.0 Nucleated RBC % 0 Absolute Neutrophils 7.01 H Absolute Lymphocytes 3.08 Absolute Monocytes 0.79 Absolute Eosinophils 0.15 Absolute Basophils 0.11 Sodium 140 Potassium 3.7 Chloride 103 Carbon Dioxide 25.7 Anion Gap 11.3 H BUN 26 H Creatinine 1.8 H Estimated GFR/1.73 m2 27.00 Glucose 84 Calcium 9.1 Magnesium Troponin I TSH 4.00 H
[2021-08-31] MEDS: DOXYCYCLINE 100 MG in Normal Saline 100 ML IVPB ×2 (09:32→20:44)
[2021-08-31 09:33] LABS: Calculated LDL 164 mg/dL (<100); Cholesterol 259 mg/dL (<200); HDL Cholesterol 77 mg/dL (40-60); Triglyceride 90 mg/dL (<150)
[2021-08-31] MEDS: Normal Saline Flush 10 ML SYR IVP ×2 (09:33→20:43)
[2021-08-31 10:48] LABS: Hemoglobin A1C 5.5 % (<5.7)
--- NOTE | 2021-08-31 14:23 | PHA.REVIEW ---
Pharmacy Admission Review - Admission Clinical Review (Last Reviewed 08/31/21 @ 09:23 by Afshan Wagoner MD) Hypertension (Acute) Cardiomyopathy (Acute) Hypertensive emergency (Acute) Tobacco abuse (Acute) Discharge planning issues (Acute) DVT prophylaxis (Acute) Chest discomfort (Acute) Acute combined systolic (congestive) and diastolic (congestive) heart failure (Acute) Acute respiratory failure with hypoxia (Acute) Acute respiratory distress (Acute) Pulmonary edema (Acute) lisinopril Adverse Reaction (Intermediate, Unverified 08/30/21 07:06) cough Resuscitation Status DNR/DNI Height 5 ft 2 in Weight 61.3 kg - Renal Dosing Renal Dosing: BUN 26 mg/dL (7-18) H 08/31/21 07:29 Creatinine 1.8 mg/dL (0.55-1.02) H 08/31/21 07:29 Medications needing adjustments: Reviewed (SCr: 1.8, CrCl~19.38mL/min.) List of meds needing interventions: Decreased Enoxaparin dose to 30mg SC Q24H due to renal function. - Anticoagulation Anticoagulation: Hgb 11.4 g/dL (11.2-15.7) 08/31/21 07:29 Hct 35.2 % (36.0-46.0) L 08/31/21 07:29 Plt Count 267 10^3/uL (130-400) 08/31/21 07:29 Creatinine 1.8 mg/dL (0.55-1.02) H 12 07:29 DVT Prophylaxis: Reviewed Medications: Enoxaparin - Opiate Usage Evaluate Pain Scale/Pains Meds: N/A (No opiates this admission.) - Relevant Labs Sodium 140 mmol/L (136-145) 08/31/21 07:29 Potassium 3.7 mmol/L (3.5-5.1) 08/31/21 07:29 Chloride 103 mmol/L (98-107) 08/31/21 07:29 Magnesium 2.5 mg/dL (1.8-2.4) H 08/30/21 08:40 Electrolytes, C-Reactive P, ESR: Reviewed (Magnesium slightly elevated (2.5).) - DM Control DM Control: Glucose 84 mg/dL (74-106) 08/31/21 07:29 Hemoglobin A1c 5.5 % (<5.7) 08/31/21 07:29 Insulin Dosing: N/A - Heart Failure/DC Heart Failure/DC: Troponin I < 0.05 ng/mL (<0.06) 08/30/21 20:11 NT-Pro-B Natriuret Pep 90732 pg/mL (<300) H 08/30/21 07:50 EF%, JO's, B-Blockers, Diuretics: Reviewed - BP Control BP Control: Blood Pressure 143/69 Blood Pressure 168/80 Blood Pressure 133/71 If elevated: Reviewed (Blood pressure elevated this admission.) - Qtc Review If Elevated: N/A (QTc 460 on admission.) - IV to PO Switch IV Medications: Reviewed - Home Meds Home Med List reviewed: Intervened (Completed med reconcilliation, followed up directly with PCP for notes to find why her hypertension meds were discontinued. Losartan and Spironolactone d/c'd due to hyperkalemia in 2019.) - Current meds Current Medication Order Review: Intervened (Atenolol 100mg was discontinued and converted over to Carvedilol 6.25mg BID.) - Comments Comments/Follow Ups: Continue to monitor potassium, magnesium, blood pressure, renal function, vitals, labs and watch out for medication changes (renal dosing). Antibiotic Activity - Pharmacy Antibiotic Review Pharmacy Antibiotic Activity: Reviewed, no change (Ceftriaxone 2gm Q24H and Doxycuycline 100mg Q12H day 2.)
[2021-08-31] MEDS: Enoxaparin 40 MG/0.4 ML SYR SC (14:29)
--- NOTE | 2021-08-31 18:34 | PGE_ITS ---
Date of Service Date of service: 08/31/21 Time of Service: 17:30 Assessment and Plan Assessment and plan (1) Acute combined systolic (congestive) and diastolic (congestive) heart failure: Status: Acute Assessment and plan: EF 40%. Doing much better. Switch to PO lasix. Systolic dysfunction and diffuse hypokinesis are new and will need ischemic workup as outpatient, but hypertensive disease is a possible cause. Monitor on tele. No ACS on this admission. Will switch atenolol to coreg. Continue losartan. Evidently, the patient was previously on spironolactone as well, but both losartan and spironolactone were stopped due to hyperkalemia. We will trial just losartan in combination with lasix, which should not in theory result in hyperkalemia. Monitor I/Os and daily weights. (2) Hypertensive emergency: Status: Acute Assessment and plan: As above. Treating with coreg, losartan, amlodipine. (3) Acute respiratory failure with hypoxia: Status: Resolved Assessment and plan: Due to above - as above check exercise oxymetry in am. (4) CAP (community acquired pneumonia): Status: Suspected Assessment and plan: Continue empiric abx. Await procalcitonin. (5) Chest discomfort: Status: Resolved Assessment and plan: No ACS. 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 Monitor on tele. Will need ischemic w/u. (6) Tobacco abuse: Status: Acute Assessment and plan: Advised to quit. Provide nicotine replacement. (7) Discharge planning issues: Status: Acute Assessment and plan: DNR/DNI Anticipate discharge home tomorrow. (8) DVT prophylaxis: Status: Acute Assessment and plan: Enoxaparin SC Subjective Subjective Interval history since last seen: Feels much better. Slept in bed for the first time in weeks. Breathing is better. On room air today. Denies dizziness, chest pain/flutters, shortness of breath, nausea. Exam Narrative Exam Narrative: General: Very pleasant elderly female sitting up in a chair, looks better than yesterday, A&Ox3 HEENT: EOMI, MMM Cardiovascular: RRR, no m/r/g Lungs: CTAB Gastrointestinal: soft, nontender, nondistended Extremities: no edema BLE's Objective Last Vital Signs Temp 36.2 C L 08/31/21 15:38 Pulse 57 L 08/31/21 17:21 Resp 20 08/31/21 15:38 BP 148/67 H 08/31/21 15:38 Pulse Ox 93 08/31/21 15:38 Laboratory Results - last 24 hr 08/30/21 08/31/21 08/31/21 20:11 07:29 07:29 WBC RBC Hgb Hct MCV MCH MCHC RDW Plt Count MPV Immature Gran % Neutrophils % Lymphocytes % Monocytes % Eosinophils % Basophils % Nucleated RBC % Absolute Neutrophils Absolute Lymphocytes Absolute Monocytes Absolute Eosinophils Absolute Basophils Sodium 140 Potassium 3.7 Chloride 103 Carbon Dioxide 25.7 Anion Gap 11.3 H BUN 26 H Creatinine 1.8 H Estimated GFR/1.73 m2 27.00 Glucose 84 Hemoglobin A1c 5.5 Calcium 9.1 Troponin I < 0.05 Triglycerides 90 Total Cholesterol 259 H LDL Cholesterol, Calc 164 H HDL Cholesterol 77 TSH 4.00 H 08/31/21 07:29 WBC 11.16 H RBC 3.57 L Hgb 11.4 Hct 35.2 L MCV 98.6 H MCH 31.9 MCHC 32.4 RDW 15.4 H Plt Count 267 MPV 10.4 Immature Gran % 0.2 Neutrophils % 62.8 Lymphocytes % 27.6 Monocytes % 7.1 Eosinophils % 1.3 Basophils % 1.0 Nucleated RBC % 0 Absolute Neutrophils 7.01 H Absolute Lymphocytes 3.08 Absolute Monocytes 0.79 Absolute Eosinophils 0.15 Absolute Basophils 0.11 Sodium Potassium Chloride Carbon Dioxide Anion Gap BUN Creatinine Estimated GFR/1.73 m2 Glucose Hemoglobin A1c Calcium Troponin I Triglycerides Total Cholesterol LDL Cholesterol, Calc HDL Cholesterol TSH
[2021-08-31] MEDS: Pravastatin 20 MG TAB 10 MG PO (20:44)
[2021-08-31] MEDS: Normal Saline 500 ML 30 ML IV (20:44)
[2021-08-31] MEDS: Acetaminophen 325 MG TAB PO (20:58)
[2021-09-01 02:55] VITALS: BP 161/89; PULSE 62; RESP 18; TEMP 36.8; O2SAT 97
[2021-09-01] MEDS: Levothyroxine 88 MCG TAB PO (05:15)
[2021-09-01 07:01] VITALS: PULSE 55
[2021-09-01 07:03] LABS: Abs Immature Grans 0.04 10^3/uL (0.0-0.06); Absolute Eosinophil Count 0.21 10^3/uL (0.0-0.7); Absolute Lymphocyte Count 2.22 10^3/uL (1.2-3.4); Absolute Neutrophil Count 8.08 10^3/uL (1.2-6.7); Basophils % 0.9; Eosinophils % 1.8; HCT 34.4 % (36.0-46.0); HGB 11.4 g/dL (11.2-15.7); Immature Grans % 0.3; Lymphocytes % 19.3; MCH 31.7 pg (27.0-33.0); MCHC 33.1 % (32.0-36.0); MCV 95.6 fL (80-95); MPV 10.7 fL (8.0-11.0); Monocytes % 7.6; Neutrophils % 70.1; Nucleated RBC 0 %; Platelet Count 262 10^3/uL (130-400); RDW 15.1 % (11.7-14.6); RDW-SD 52.3 fL; WBC 11.52 10^3/uL (4.4-10.8)
[2021-09-01 07:06] LABS: Absolute Monocyte Count 0.88 10^3/uL (0.1-0.8)
[2021-09-01 07:17] LABS: Anion Gap 10.3 mmol/L (3-11); BUN 38 mg/dL (7-18); CO2 26.7 mmol/L (21.0-32.0); CREATININE 2.1 mg/dL (0.55-1.02); Calcium 9.2 mg/dL (8.5-10.1); Chloride 102 mmol/L (98-107); Glucose 85 mg/dL (74-106); Potassium 3.7 mmol/L (3.5-5.1); Sodium 139 mmol/L (136-145)
[2021-09-01 07:39] VITALS: BP 162/81; PULSE 66; RESP 17; TEMP 36.3; O2SAT 95
[2021-09-01 07:55] LABS: Procalcitonin < 0.1 ng/mL
[2021-09-01] MEDS: Normal Saline Flush 10 ML SYR IVP (08:30)
[2021-09-01] MEDS: Losartan 50 MG TAB 100 MG PO (08:31)
[2021-09-01] MEDS: cefTRIAXone 2 GM/50 ML BAG IVPB (08:31)
[2021-09-01] MEDS: DOXYCYCLINE 100 MG in Normal Saline 100 ML IVPB (08:31)
[2021-09-01] MEDS: Carvedilol 6.25 MG TAB PO (08:31)
[2021-09-01] MEDS: Magnesium Chloride 64 MG TABCR PO (08:32)
[2021-09-01] MEDS: amLODIPine 5 MG TAB PO (08:32)
[2021-09-01] MEDS: Multivitamin w/Minerals TAB 1 TAB PO (08:32)
[2021-09-01] MEDS: Aspirin E.C. 81 MG TABEC PO (08:32)
[2021-09-01] MEDS: Furosemide 20 MG TAB PO (08:32)
[2021-09-01] MEDS: Allopurinol 100 MG TAB PO (08:32)
--- NOTE | 2021-09-01 09:02 | PDOC.CMDIS ---
- If Service Date Differs Date of service: 09/01/21 Time of Service: 09:02 LACE Index Scoring Tool - Questions: Length of Stay (in days): 2 Acuity (Admit via E.D.?): Yes Comorbidities: Any Tumor, Liver or Renal Disease E.D. Visits: 1 - Answers: Total Score: 11 Risk of Readmission: High Risk Care Management Discharge Reason for Hospitalization: Acute CHF, Hypertensive Emergency, CAP Discharge Plan: Jennifer will be discharged home when medically cleared by provider with no additional services at this time. CM provided CHF booklet to Jennifer who shared no concerns re: discharge. CM reviewed with Jennifer's grand-daughter Viviane. CM notified [facility] Blackwood's RN Arvind of need for Ziopatch-2wk monitor prior auth per MD request. Arvind reported she would input order. Tim stated the Ziopatch would be placed as an outpatient after the prior auth is complete-CM notified MD of above. Jennifer will transport via private vehicle with family, follow up with community providers and her discharge plan of care as prescribed. Patient/Family Education Needs: Review discharge instructions, discuss Ask Me Three.
[2021-09-01 10:05] VITALS: PULSE 64; PULSE 66; PULSE 86; RESP 16; RESP 17; RESP 18; O2SAT 94; O2SAT 97; O2SAT 98
[2021-09-01 11:40] VITALS: BP 153/76; PULSE 63; RESP 17; TEMP 36.4; O2SAT 95
--- NOTE | 2021-09-01 13:20 | DSE_ITS ---
Date of service: 09/01/21 Time of Service: 13:20 DS: Diagnosis Discharge Diagnosis (1) Acute combined systolic (congestive) and diastolic (congestive) heart failure: Status: Acute (2) Hypertensive emergency: Status: Acute (3) Cardiomyopathy: Status: Acute (4) Acute respiratory failure with hypoxia: Status: Resolved (5) CAP (community acquired pneumonia): Status: Suspected (6) Palpitations: Status: Acute (7) Chest discomfort: Status: Resolved (8) Tobacco abuse: Status: Chronic (9) Abdominal aortic aneurysm: Asessment and Plan: Known, will need outpatient follow up through PCP (10) Hypertension: Status: Acute (11) Acute kidney injury superimposed on chronic kidney disease: Status: Acute (12) COVID-19 ruled out by laboratory testing: Status: Ruled-out Discharge Plan Disposition Patient Disposition: HOME Condition: Improving Discharge Details Reason For Visit: Acute CHF,Hypertensive Emergency,CAP Admit Date/Time: 08/30/21 10:11 Admit Provider: Antonietta Gipson Attending Provider: Antonietta Gipson Primary Care Provider: Pham Blackwood [facility] Course Hospital Course: Ms Stark is an 80 year old female with PMHx of hypertension, hyperlipidemia, AAA, tobacco abuse, who was admitted to [facility] Hospitalist service on 08/30/21 with acute combined CHF in setting of hypertensive emergency. She was also found to have a pneumonia. She was hypoxic on admission requiring 6L of O2 by KS. Additionally, while at home, the patient reported an episode of chest discomfort and palpitations. The patient was treated with IV furosemide, nitroglycerin patch, and her blood pressure control was intensified. She ruled out for acute coronary syndrome. She was also treated for pneumonia with empiric ceftriaxone/cefpodoxime. The patient's condition improved quickly and she was off of oxygen by hospital day 2. She had an echocardiogram which revealed LVEF of 40-45% with diffuse hypokinesis, moderate mitral regurgitation, mild to moderate tricuspid regurgitation. She has known diastolic dysfunction. There was also moderate dilatation of the ascending aorta (4.1 cm). The patient was evaluated by Dr Wagoner of cardiology for her new systolic dysfunction/cardiomyopathy. Optimization of medical therapy was recommended. It is likely that it was undertreated hypertension that resulted in development of cardiomyopathy, but she would benefit from an MPI as outpatient, especially given her chest pain prior to presentation to the hospital which sounded typical. Given her report of palpitations at home which also could have resulted in pulmonary edema tachycardic cardiomyopathy, a two week security support analyst is recommended on discharge, which is being arranged through the PCP's office. The patient is getting discharged home on a combination of coreg, losartan, furosemide (20 mg daily; only a short course is being prescribed and will need to be followed up by PCP). The patient is medically stable for discharge home today. She will need follow up with PCP, cardiology. An MPI stress test and BMP are being ordered on discharge (1 week). Care for patient as well as completion of her discharge summary on day of discharge took 45 minutes. Home Meds and New Rx's Prescriptions: New losartan 50 mg Tablet 100 mg PO DAILY Qty: 30 RF: 0 carvedilol [Coreg] 6.25 mg Tablet 6.25 mg PO BID Qty: 60 RF: 0 nicotine 14 mg/24 hr Patch 24 Hour 14 mg transdermal DAILY PRN PRNQty: 30 RF: 0 amlodipine 5 mg Tablet 5 mg PO DAILY Qty: 30 RF: 0 furosemide 20 mg Tablet 20 mg PO DAILY Qty: 10 RF: 0 doxycycline hyclate 100 mg capsule 100 mg PO BID Qty: 5 RF: 0 cefpodoxime 200 mg tablet 200 mg PO BID Qty: 5 RF: 0 Continued levothyroxine 88 mcg capsule 88 mcg PO DAILY RF: 0 budesonide 3 mg capsule,delayed,extend.release 3 mg PO DAILY PRNRF: 0 Slow-Mag 71.5 mg tablet,delayed release (DR/EC) 71.5 mg PO BID RF: 0 allopurinol 100 MG tablet 100 mg PO BID RF: 0 aspirin 81 MG tablet,delayed release (DR/EC) 81 mg PO DAILY RF: 0 ESSENTIAL Daily 1 EACH tablet 1 ea PO DAILY RF: 0 pravastatin 10 mg Tablet 10 mg PO DAILY RF: 0 Discontinued atenolol 100 MG tablet 100 mg PO DAILY Qty: 1 RF: 0 Discharge Instructions Instructions: Furosemide (By mouth), Doxycycline (By mouth), Cefpodoxime Proxetil (By mouth), Amlodipine (By mouth), Losartan (By mouth), Carvedilol (By mouth), Heart Failure (DC), Heart Palpitations (DC), How to Stop Smoking (DC), Aspiration Pneumonia (DC), Low-Sodium Diet (DC), Cardiac Stress Test (DC) Additional Instructions: You must stop smoking. Finish your antibiotics as prescribed. Follow a two gram sodium diet. If possible, weigh yourself daily at the same time every day wearing the same amount of clothes and keep a log of your weights. Contact your PCP if you have gained more than 3 lbs in 3 days as this is fluid weight and you will need increase in the dose of your furosemide (lasix). Follow up with your PCP for when you can have your heart monitor placed. Bloodwork in 1 week. Follow up for your stress test. Return to the hospital with any fever, bleeding, chest pain or shortness of breath. Stand Alone Forms: Nursing Discharge Form Referrals: [facility] [Other] (Please call to make an appointment to have labs done.) Afshan Wagoner MD [ [facility] STAFF PHYSICIAN] - 10/06/21 11:20 am (CHF) Pham Blackwood MD [Primary Care Provider] - 09/08/21 10:00 am Activity:: Activity as Tolerated Equipment/Supplies:: No Equipment Needed Diet:: Low Sodium Discharge Orders Discharge Orders: Discharge Order (Routine); Ordered 09/01/21 Ordered By: Antonietta Gipson Other Ambulatory Orders: Basic Metabolic Panel (Routine) Timeframe: [id number] Facility: [facility] - Location: Laboratory Ordered By: Antonietta Gipson MS MPI rest & stress grp (Routine) Timeframe: 2 Weeks Facility: [facility] - Location: DIAGNOSTIC IMAGING Ordered By: Antonietta Gipson DS: Summary Time Spent with Patient providing and/or coordinating discharge services: Greater than 30 minutes Status at Discharge Functional status at discharge: independent ambulation Overall status at discharge: patient is back to baseline Mental Status: mental status grossly normal Speech and Movement: speech and movement normal Mood: congruent mood Affect: normal affect Exam Narrative Exam Narrative: General: Very pleasant elderly female sitting up in a chair, looks better than yesterday, A&Ox3 HEENT: EOMI, MMM Cardiovascular: RRR, no m/r/g Lungs: Faint crackles at the R base Gastrointestinal: soft, nontender, nondistended Extremities: no edema BLE's Psych Mental Status: mental status grossly normal Speech and Movement: speech and movement normal Mood: congruent mood Affect: normal affect DS: Data Vitals/I&O Vitals and I&O: Vital Signs Temperature 36.4 C L 09/01/21 11:40 Temperature Source Tympanic 09/01/21 11:40 Pulse 63 09/01/21 11:40 Pulse Rhythm Regular 09/01/21 10:39 Pulse 64 08/30/21 11:50 Respiratory Rate 17 09/01/21 11:40 Respiratory Effort 09/01/21 10:39 Respiratory Depth Normal 09/01/21 10:39 Respiratory Pattern Normal 09/01/21 10:39 Blood Pressure 153/76 H 09/01/21 11:40 Blood Pressure Mean 88 08/30/21 12:11 Blood Pressure Position Sitting 08/30/21 06:50 Pulse Oximetry 95 09/01/21 11:40 Oxygen Delivery Method Room Air 09/01/21 11:40 Oxygen Flow Rate 0 09/01/21 11:40 Pain Level 0 09/01/21 11:40 Comment 08/30/21 16:23 Intake & Output 08/31/21 09/01/21 09/01/21 23:59 11:59 23:59 Intake Total 250 / 2051 208.5 / 208.5 Output Total 1350 / 3300 900 / 1400 500 / 1400 Balance -1100 / -1249 -691.5 / -1191.5 -500 / -1191.5 Weight 63.1 kg Intake: IV 0 / 381 208.5 / 208.5 Oral 250 / 1670 Output: Urine 1350 / 3300 900 / 1400 500 / 1400 Other: Urine Color Pale Yellow Pale Yellow Urine Appearance Clear Clear Clear Comment good out put, slight bump in the creatinine, transtion to oral lasix Stool Size Large Stool Characteristics Soft Brown Data Completed and Pending Completed studies during hospitalization [Text1]: CXR: 1. Pulmonary venous congestion with bilateral interstitial edema. 2. No focal consolidating infiltrate. Echo: Left Ventricle The left ventricle is normal size. Left ventricular systolic function is mild to moderately decreased. There is normal left ventricular wall thickness. There is global hypokinesis of the left ventricle. There is no ventricular septal defect visualized. LVEF is 40-45%. Right Ventricle Right ventricle is not well visualized. Right ventricular systolic function could not be assessed. The RVSP is 33.0mmHg. Atria Left atrium is moderately dilated. The right atrium size is normal. The interatrial septum is intact with no evidence for an atrial septal defect. Aortic Valve The Aortic valve is sclerotic. Aortic valve is calcified. Number of aortic valve leaflets could not be assessed. There is no aortic valvular stenosis. Moderate aortic regurgitation. Mitral Valve Moderate mitral annular calcification. No evidence of mitral valve stenosis. Moderate mitral regurgitation. Mitral regurgitation jet is eccentrically directed. Tricuspid Valve The tricuspid valve is normal in structure. There is no tricuspid valve stenosis. Mild to moderate tricuspid regurgitation. Pulmonic Valve The pulmonary valve is normal in structure. There is no pulmonic valvular stenosis. There is no pulmonic valvular regurgitation. Great Vessels The aortic root is normal in size. The ascending aorta is severely dilated. Aortic arch is not well visualized. IVC is normal in size and collapses >50% with inspiration. Pericardium There is no pericardial effusion. Labs on day of discharge: Labs from last 24 hours 09/01/21 09/01/21 09/01/21 06:35 06:35 06:35 WBC 11.52 H RBC 3.60 L Hgb 11.4 Hct 34.4 L MCV 95.6 H D MCH 31.7 MCHC 33.1 RDW 15.1 H Plt Count 262 MPV 10.7 Immature Gran % 0.3 Neutrophils % 70.1 Lymphocytes % 19.3 Monocytes % 7.6 Eosinophils % 1.8 Basophils % 0.9 Nucleated RBC % 0 Absolute Neutrophils 8.08 H Absolute Lymphocytes 2.22 Absolute Monocytes 0.88 H Absolute Eosinophils 0.21 Absolute Basophils 0.10 Sodium 139 Potassium 3.7 Chloride 102 Carbon Dioxide 26.7 Anion Gap 10.3 BUN 38 H D Creatinine 2.1 H Estimated GFR/1.73 m2 22.60 Glucose 85 Calcium 9.2 Magnesium 2.0 Procalcitonin < 0.1 Preliminary micro results at discharge 08/30/21 08:45 Blood Culture - Preliminary Blood NO GROWTH 48 HOURS 08/30/21 08:40 Blood Culture - Preliminary Blood NO GROWTH 48 HOURS PFSH All Active Problems (Updated 09/01/21 @ 13:35 by Antonietta Gipson MD) Acute kidney injury superimposed on chronic kidney disease (Acute) Palpitations (Acute) Hypertension (Acute) Cardiomyopathy (Acute) Hypertensive emergency (Acute) Tobacco abuse (Chronic) Discharge planning issues (Acute) DVT prophylaxis (Acute) Acute combined systolic (congestive) and diastolic (congestive) heart failure (Acute) Acute respiratory distress (Acute) Pulmonary edema (Acute) Active Problem List Hypertensive emergency (Acute) Tobacco abuse (Acute) Discharge planning issues (Acute) DVT prophylaxis (Acute) Chest discomfort (Acute) Acute combined systolic (congestive) and diastolic (congestive) heart failure (Acute) Acute respiratory failure with hypoxia (Acute) Acute respiratory distress (Acute) Pulmonary edema (Acute) Medical History Abdominal aortic aneurysm Aortic stenosis Chronic insomnia Collagenous colitis Diastolic heart failure Elevated sed rate Gout History of hepatitis History of thyroid cancer History of tobacco abuse Hyperlipidemia Hypermagnesemia Hypertension Impaired fasting glucose Kidney disease, chronic, stage III (GFR 30-59 ml/min) Macrocytosis Mitral regurgitation 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 Surgical History H/O excision of epidermal inclusion cyst Family History Brother Cancer prostate cancer Brother Heart disease Brother ESRD (end stage renal disease) Social History Smoking/Tobacco Use Status: Current every day Tobacco Type: cigarettes Smoking packs per day: 0.5 Smoking cigarettes per day: 10.0 Years smoked: 61 Smoking pack-years: 30.50 Tobacco: How many years used: 61 Counseling given: provider counseling and support medications Smoking risk assessment performed?: Yes Alcohol Intake: never Drug use: Never Substance use type: does not use Do you feel safe at home: Yes Do you feel safe in your relationship?: Yes
== END 2021-09-01 15:45 | disposition home or self-care (01) | DRG 291 ==
LOC: ER 11:13 → MS 12:27
PROVIDERS: Student in an Organized Health Care Education/Training Program; Admitting Provider Internal Medicine; Emergency Provider Emergency Medicine; PCP Family Medicine; Visit Provider Internal Medicine
DX: I13.0 Hypertensive heart and chronic kidney disease with heart failure and stage 1 through stage 4 chronic kidney disease, or unspecified chronic kidney disease (principal); J18.9 Pneumonia, unspecified organism; J96.01 Acute respiratory failure with hypoxia; I50.21 Acute systolic (congestive) heart failure; I50.33 Acute on chronic diastolic (congestive) heart failure; I16.1 Hypertensive emergency; J44.0 Chronic obstructive pulmonary disease with (acute) lower respiratory infection; N17.9 Acute kidney failure, unspecified; I42.9 Cardiomyopathy, unspecified; E78.5 Hyperlipidemia, unspecified; N18.30 Chronic kidney disease, stage 3 unspecified; F17.210 Nicotine dependence, cigarettes, uncomplicated; R07.89 Other chest pain; Z20.822 Contact with and (suspected) exposure to COVID-19; Z85.850 Personal history of malignant neoplasm of thyroid; E87.5 Hyperkalemia; I71.4 Abdominal aortic aneurysm, without rupture
CPT/HCPCS: 36410; 36415; 51702; 80048; 80053; 80061; 82805; 84145; 87040; 87635; 93005; 94618; 96365; 96367; 96368; 96375; 99221; 99291; J1650; 71045; 83036; 83735; 83880; 84443; 84484; 85025; 93010; 93306; 99223; 99232; 99239; J0456; J1940

== ENCOUNTER → 2021-08-31 08:32 | Outpatient (BNVA) | payer MEDICARE, OTHER, SELFPAY | PROVIDERS: PCP Family Medicine; Referring Provider Family Medicine; Visit Provider Internal Medicine Cardiovascular Disease | DX: R69 Illness, unspecified (principal) ==

== ENCOUNTER 2021-09-07 02:35 | Outpatient (CLI) | payer MEDICARE, OTHER, SELFPAY ==
[2021-09-07 16:00] LABS: Anion Gap 9.4 mmol/L (3-11); BUN 40 mg/dL (7-18); CO2 23.6 mmol/L (21.0-32.0); CREATININE 2.2 mg/dL (0.55-1.02); Calcium 9.4 mg/dL (8.5-10.1); Chloride 100 mmol/L (98-107); Estimated GFR 21.42 (mL/min/1.73m2); Glucose 121 mg/dL (74-106); Potassium 5.1 mmol/L (3.5-5.1); Sodium 133 mmol/L (136-145)
== END 2021-09-07 02:36 | disposition home or self-care (01) ==
LOC: LBO 02:36
PROVIDERS: PCP Family Medicine; Visit Provider Internal Medicine
DX: I10 Essential (primary) hypertension (principal); I50.41 Acute combined systolic (congestive) and diastolic (congestive) heart failure
CPT/HCPCS: 36415; 80048

== ENCOUNTER 2021-09-08 03:53 | Outpatient (CLI) | payer MEDICARE, OTHER, SELFPAY ==
--- NOTE | 2021-09-25 15:47 | W.CARDEVENT ---
Date of service: 09/25/21 Time of Service: 15:47 Cardiac Event Recorder Referring Provider:: Pham Blackwood Indications:: Heart failure unspecified Cardiac Event Note: This was a 14-day protective signal operations supervisor, reportedly ordered for heart failure. Predominant rhythm was sinus with an average heart rate of 83. Minimum was 55, maximum 145 There were moderately frequent atrial premature beats There were rare ventricular ectopic beats, no couplets, no ventricular tachycardia There was no atrial fibrillation, no high-grade AV block, no pop is greater than 3 seconds There are multiple self-limited atrial runs, generally 3-6 beats in duration. The episode of SVT that lasted 3 minutes appeared to be sinus tachycardia rate 138, not SVT There were no patient symptoms reported
== END 2021-09-08 03:54 | disposition home or self-care (01) ==
LOC: RT 03:53
PROVIDERS: PCP Family Medicine; Visit Provider Family Medicine
DX: I50.9 Heart failure, unspecified (principal)
CPT/HCPCS: 93246

== ENCOUNTER 2021-09-14 02:10 | Outpatient (CLI) | payer MEDICARE, OTHER, SELFPAY ==
--- NOTE | 2021-09-14 | DI.US_ITS ---
Exam(s) US AAA DIAGNOSTIC EXAM: US AAA DIAGNOSTIC CLINICAL HISTORY: AAA I71.4, F/U KNOWN AAA COMPARISON: No exams were available for comparison FINDINGS: Abdominal Aorta: Proximal: 2.6 cm mural calcification is visible. Mid: 2.3 cm Distal: 3.8 cm Iliacs: Right: 1.6 cm Left: 1.6 cm, echogenic material is seen within the lumen of the left proximal iliac a rtery. No blood flow is detected in this region. The doppler velocities are within normal limits. No significant atherosclerotic disease is seen. IMPRESSION: 3.8 cm distal saccular abdominal aortic aneurysm, mildly increased in size from 3.6 cm.. Apparent occlusion of the proximal left iliac artery. DATA REPOSITORY:
== END 2021-09-14 02:30 ==
PROVIDERS: PCP Family Medicine; Visit Provider Family Medicine
DX: I71.4 Abdominal aortic aneurysm, without rupture (principal); I74.5 Embolism and thrombosis of iliac artery
CPT/HCPCS: 76775

== ENCOUNTER 2021-09-25 15:47 | Outpatient (CLI) | payer MEDICARE, OTHER, SELFPAY | END 2021-09-25 15:48 | LOC: CARDO 09-29 12:44 | PROVIDERS: PCP Family Medicine; Referring Provider Family Medicine; Visit Provider Internal Medicine Cardiovascular Disease | DX: I50.9 Heart failure, unspecified (principal); I49.1 Atrial premature depolarization; I47.1 Supraventricular tachycardia | CPT/HCPCS: 93248 ==

== ENCOUNTER 2021-09-26 03:22 | Outpatient (CLI) | payer MEDICARE, OTHER, SELFPAY ==
[2021-09-26 18:01] LABS: BUN 31 mg/dL (7-18); CREATININE 1.8 mg/dL (0.55-1.02); Calcium 9.6 mg/dL (8.5-10.1); Chloride 99 mmol/L (98-107); Glucose 110 mg/dL (74-106); Potassium 4.7 mmol/L (3.5-5.1); Sodium 138 mmol/L (136-145); TSH (W/Ref FT4) 1.64 uIU/mL (0.36-3.74)
== END 2021-09-26 03:23 | disposition home or self-care (01) ==
PROVIDERS: PCP Family Medicine; Visit Provider Family Medicine
DX: E89.0 Postprocedural hypothyroidism (principal); N18.4 Chronic kidney disease, stage 4 (severe); I50.9 Heart failure, unspecified
CPT/HCPCS: 36415; 80048; 84443

== ENCOUNTER 2021-10-11 01:06 | Outpatient (CLI) | payer MEDICARE, OTHER, SELFPAY ==
--- NOTE | 2021-10-11 09:15 | DI.US_ITS ---
Exam(s) US RENAL EXAM: US RENAL CLINICAL HISTORY: CHRONIC KIDNEY DISEASE STAGE IV, N18.4 TECHNIQUE: Ultrasound performed using standard protocol. COMPARISON: CT UPPER ABD WITH CONTRAST (P) from 08/31/2011 US US AAA DIAGNOSTIC from 09/14/2021 FINDINGS: Renal ultrasound was performed according to the usual protocol. The right kidney measures 8.1 x 5.9 x 5.6 cm and left kidney measures 9 x 4 x 4 cm. Left kidney is not well visualized. Renal cortex ap pears fairly well preserved bilaterally. There are multiple small bilateral renal cysts. There are possible tiny calculi bilaterally, there i s no evidence of hydronephrosis. There is small infrarenal fluid collection at the lower pole of the right kidney which is nonspecific. In retrospect this appears to been present on prior CT of Dece er 2010. Urinary bladder contains 40 cc. The patient was unable to void. Ureteral jets were noted bilaterally. IMPRESSION: No evidence of urinary tract obstruction. Multiple small incidental renal cysts, possible tiny bilat eral renal calculi. DATA REPOSITORY:
== END 2021-10-11 01:26 ==
PROVIDERS: PCP Family Medicine; Visit Provider Family Medicine
DX: N18.4 Chronic kidney disease, stage 4 (severe) (principal); N28.1 Cyst of kidney, acquired
CPT/HCPCS: 76770

== ENCOUNTER 2021-11-02 13:32 | Outpatient (CLI) | payer MEDICARE, OTHER, SELFPAY ==
--- NOTE | 2021-11-02 13:30 | RT.EKG_ITS ---
APPROVED REPORT Exam: Resting ECG Reason for Exam: chest pain Patient Location: O HR:68 bpm ECG Measurements Heart Rate 68 AXIS MT 192 P -47 QRSd 91 QRS -31 QT 446 T 5 QTc 475 Conclusion Sinus or ectopic atrial rhythm...P axis (-45,135) Left ventricular hypertrophy...multiple voltage criteria Poor R wave progression
== END 2021-11-02 13:33 | disposition home or self-care (01) ==
LOC: DI.CARD 13:43
PROVIDERS: PCP Family Medicine; Referring Provider Family Medicine; Visit Provider Internal Medicine Cardiovascular Disease
DX: R00.2 Palpitations (principal); R07.89 Other chest pain
CPT/HCPCS: 93010

== ENCOUNTER → 2021-11-02 13:32 | Outpatient (BNVA) | payer MEDICARE, OTHER, SELFPAY | PROVIDERS: PCP Family Medicine; Referring Provider Family Medicine; Visit Provider Internal Medicine Cardiovascular Disease | DX: R00.2 Palpitations (principal); R07.89 Other chest pain; I10 Essential (primary) hypertension; I42.9 Cardiomyopathy, unspecified; I50.40 Unspecified combined systolic (congestive) and diastolic (congestive) heart failure | CPT/HCPCS: 93005; 99214 ==

== ENCOUNTER 2022-01-09 02:21 | Outpatient (CLI) | payer MEDICARE, OTHER, SELFPAY ==
[2022-01-09 18:25] LABS: Anion Gap 10.5 mmol/L (3-11); BUN 37 mg/dL (7-18); CO2 25.5 mmol/L (21.0-32.0); CREATININE 2.1 mg/dL (0.55-1.02); Calcium 9.4 mg/dL (8.5-10.1); Chloride 102 mmol/L (98-107); Estimated GFR 22.55 (mL/min/1.73m2); Glucose 79 mg/dL (74-106); NT-proBNP 4860 pg/mL (<300); Potassium 4.5 mmol/L (3.5-5.1); Sodium 138 mmol/L (136-145)
== END 2022-01-09 02:22 | disposition home or self-care (01) ==
LOC: LBO 02:21
PROVIDERS: PCP Family Medicine; Visit Provider Family Medicine
DX: I10 Essential (primary) hypertension (principal); I50.9 Heart failure, unspecified
CPT/HCPCS: 36415; 80048; 83880

== ENCOUNTER → 2022-05-01 02:15 | Outpatient (CLI) | payer MEDICARE, OTHER, SELFPAY ==
--- NOTE | 2022-05-01 15:00 | DI.US_ITS ---
APPROVED REPORT EXAM: Comprehensive 2D, Doppler, and color-flow Echocardiogram Patient Location: Out-Patient Septic Technician: Debbie Santamaria RDCS (AE) Indications: Hypertension, Heart failure Other Information Study Quality: Adequate Conclusion Normal left ventricular wall thickness and chamber size. Estimated ejection fraction is 45 to 50%. There is mild global hypokinesis The right ventricle appears grossly normal in size and systolic function The left atrium is moderately dilated. Right atrium is normal in size The aortic valve is trileaflet and sclerotic. There is no aortic stenosis. There is moderate aortic regurgitation Mitral annular calcification, thickened mitral leaflets. There is moderate to severe eccentric jerry l regurgitation Normal tricuspid valve with mild regurgitation. Estimated right ventricular systolic pressure is 31 mmHg Dilated ascending aorta measuring 4.09 cm Wall motion Left Ventricle The left ventricle is normal size. Left ventricular systolic function is mildly decreased. Mild jesus ntric left ventricular hypertrophy. There is mild global hypokinesis of the left ventricle. There is no ventricular septal defect visualized. LVEF is 45-50%. Right Ventricle Right ventricle is grossly normal in size. Right ventricular systolic function is grossly normal. The RVSP is 30.9 mmHg. Atria Left atrium is moderately dilated. The right atrium size is normal. The interatrial septum is intact with no evidence for an atrial septal defect. Aortic Valve The Aortic valve is sclerotic and trileaflet. There is no aortic valvular stenosis. Moderate aortic r egurgitation. Mitral Valve Mild mitral annular calcification. Mitral leaflets are thickened No evidence of mitral valve stenosis . Moderate to severe eccentric mitral regurgitation Tricuspid Valve The tricuspid valve is normal in structure. There is no tricuspid valve stenosis. Mild tricuspid regu rgitation. Pulmonic Valve The pulmonary valve is normal in structure. There is no pulmonic valvular stenosis. Trace pulmonic re gurgitation. Great Vessels The aortic root is normal in size. The ascending aorta is dilated.4.09 cm Aortic arch is normal in ca liber. IVC is normal in size and collapses >50% with inspiration. Pericardium There is no pericardial effusion. 2D Dimensions IVSD d PLAX 1.11 cm F: 0.6-1.0 LV Vol A2C d MOD 110.3 mL LVPW d PLAX 1.14 cm F: 0.6 - 1.0 LV Vol A4C d MOD 112.4 mL LVID d PLAX 4.56 cm F: 3.8 - 5.2 LA vol/ BSA A2C s A-L 58.1 mL/m2 LVDs 3.50 cm F: 2.2 - 3.5 LA vol/ BSA A4C s A-L 53.6 mL/m2 Ao Root d 3.19 cm F: 2.7 - 3.3 LA Vol/ BSA Biplane s A-L 57.9 mL/m2 RA Area A4C 13.73 cm2 LA Area A4C s MOD 24.99 cm2 RA Vol/ BSA A4C s A-L 21.6 mL/m2 LA Area A2C s MOD 25.10 cm2 Ao Asc Diam d 4.09 cm F: 2.3 - 3.1 LV EF A4C MOD 45.6 % LV EF Teichholz 44.8 % LV EF A2C MOD 45.9 % LVEF (Downs's) 45.51 % F: 54 - 74 LV EF Biplane MOD 45.5 % LV Volume 90.89 mL F: 46 - 106 SV 50.95 mL LV Volume Index 56.80 mL/m2 F: 29 - 61 SV Index 31.77 mL/m2 LV Vol Biplane MOD 112.0 mL FS 22.15 % M-Mode TAPSE 2.17 cm (M/F) >1.7 LV Diastology MV E' medial 0.041 (>0.07 m/s) E/A Ratio 0.7 LV E/e MED 27.90 (<14) MV E Vmax 1.15 (0.4-1.3 m/s) MV E' lateral 0.053 (>0.1 m/s) MV A Vmax 1.70 (0.4-1.3 m/s) LV E/e LAT 21.70 (<14) MV E/A Ratio 0.67 MV E/E' medial 27.94 MV E/E' lateral 21.73 Aortic Valve LVOT Area 3.12 cm2 AoV Area Vmax 1.79 cm2 LVOT Vmax 1.05 m/s AoV Area/ BSA (Vmax) 1.12 cm2/m2 LVOT Mean Robbi. 0.67 m/s BEVERLY Mean Robbi. 1.74 cm2 LVOT Peak Grad 4.4 mmHg BEVERLY Mean Robbi. Index 1.09 cm2/m2 LVOT Mean Grad 2.2 mmHg AR DT 1849 msec LVOT VTI 0.241 m AR PHT 536 msec LVOT Diam s 1.95 cm AoV Vmax 1.83 m/s Velocity Ratio 0.57 AoV Mean Robbi. 1.20 m/s AoV Peak Grad 13.3 mmHg LVOT SV 75.32 mL AoV Mean Grad 6.6 mmHg AoV VTI 0.367 m AoV Area VTI 2.05 cm2 AoV Area/ BSA (VTI) 1.28 cm/m2 Mitral Valve MV DT 485 (160-240 msec) MR Vmax 5.04 m/s MV PHT 141 msec MR VTI 1.886 m MV Area PHT 1.56 cm2 MR Peak Grad 101.4 mmHg MV VTI 0.554 m MR Mean Grad 67.4 mmHg MV VTI Annulus 0.581 m MV Area VTI 1.43 (4.0-6.0 cm2) Pulmonary Valve PV Vmax 0.95 (0.5-1.5 m/s) RVOT Peak Gr. 2.36 mmHg PV Peak Grad 3.6 mmHg RVOT Mean Gr. 1.10 mmHg PV Mean Grad 2.0 mmHg RVOT VTI 0.159 m PV VTI 0.219 m RVOT Vmax 0.77 m/s Tricuspid Valve TR Peak Grad 27.8 mmHg TR Vmax 2.64 m/s RA Pressure 3.00 mmHg RVSP (TR) 30.9 mmHg
== END ==
PROVIDERS: PCP Family Medicine; Visit Provider Internal Medicine Cardiovascular Disease
DX: I10 Essential (primary) hypertension (principal)
CPT/HCPCS: 93306

== ENCOUNTER → 2022-05-03 15:04 | Outpatient (BNVA) | payer MEDICARE, OTHER, SELFPAY | PROVIDERS: PCP Family Medicine; Referring Provider Family Medicine; Visit Provider Internal Medicine Cardiovascular Disease | DX: R60.0 Localized edema (principal); F17.210 Nicotine dependence, cigarettes, uncomplicated; I50.40 Unspecified combined systolic (congestive) and diastolic (congestive) heart failure; I42.9 Cardiomyopathy, unspecified; I34.0 Nonrheumatic mitral (valve) insufficiency; I35.1 Nonrheumatic aortic (valve) insufficiency | CPT/HCPCS: 99214; 99443 ==

== ENCOUNTER 2022-07-10 03:45 | Outpatient (CLI) | payer MEDICARE, OTHER, SELFPAY ==
[2022-07-10 17:26] LABS: HCT 35.5 % (36.0-46.0); HGB 11.9 g/dL (11.2-15.7); MCH 32.2 pg (27.0-33.0); MCHC 33.5 % (32.0-36.0); MCV 96 fL (80-95); MPV 12.1 fL (8.0-11.0); Platelet Count 236 10^3/uL (130-400); RDW 15.5 % (11.7-14.6); WBC 9.07 10^3/uL (4.4-10.8)
[2022-07-10 17:55] LABS: ALT 14 U/L (14-59); AST 25 U/L (15-37); Albumin 3.6 g/dL (3.4-5.0); Alkaline Phosphatase 83 U/L (46-116); BUN 46 mg/dL (7-18); Bilirubin, Total 0.4 mg/dL (0.2-1.0); CREATININE 2.4 mg/dL (0.55-1.02); Calcium 9.6 mg/dL (8.5-10.1); Chloride 101 mmol/L (98-107); Estimated GFR 19.67 (mL/min/1.73m2); Ferritin 126 ng/mL (8-252); Glucose 128 mg/dL (74-106); Magnesium 2.1 mg/dL (1.8-2.4); Potassium 4.7 mmol/L (3.5-5.1); Sodium 135 mmol/L (136-145); Total Protein 8.2 g/dL (6.4-8.2)
[2022-07-10 18:09] LABS: Iron 59 ug/dL (50-170); Total Iron Binding Capacity 342 ug/dL (250-450); Transferrin Sat 17 % (15-50)
[2022-07-11 20:04] LABS: Parathyroid Hormone,Intact 83 pg/mL (19-88)
[2022-07-12 06:10] LABS: Vitamin D 25 Total 33.3 ng/mL (30-100)
== END 2022-07-10 03:46 | disposition home or self-care (01) ==
LOC: LBO 03:45
PROVIDERS: PCP Family Medicine; Visit Provider Family Medicine
DX: N18.4 Chronic kidney disease, stage 4 (severe) (principal); E89.0 Postprocedural hypothyroidism
CPT/HCPCS: 36415; 80053; 82306; 85027; 82728; 83540; 83550; 83735; 83970

== ENCOUNTER 2022-08-13 02:56 | Outpatient (CLI) | payer MEDICARE, OTHER, SELFPAY ==
[2022-08-13 17:44] LABS: Anion Gap 12.8 mmol/L (3-11); BUN 49 mg/dL (7-18); CO2 25.2 mmol/L (21.0-32.0); CREATININE 2.5 mg/dL (0.55-1.02); Calcium 9.3 mg/dL (8.5-10.1); Chloride 97 mmol/L (98-107); Estimated GFR 18.73 (mL/min/1.73m2); Glucose 112 mg/dL (74-106); PHOSPHORUS 4.9 mg/dL (2.6-4.7); Potassium 3.4 mmol/L (3.5-5.1); Sodium 135 mmol/L (136-145)
[2022-08-15 09:08] LABS: Magnesium Random Urine 7.5 mg/dL (See Note)
== END 2022-08-13 02:57 | disposition home or self-care (01) ==
LOC: LBO 02:56
PROVIDERS: PCP Family Medicine
DX: N18.32 Chronic kidney disease, stage 3b (principal)
CPT/HCPCS: 36415; 80048; 83735; 84100

== ENCOUNTER 2022-08-29 13:42 | Emergency (ER) | payer MEDICARE, OTHER, SELFPAY ==
[2022-08-29] VITALS (16 sets, daily range): BP systolic 117–150; BP diastolic 64–83; PULSE 69–96; RESP 9–32; TEMP 36.3; O2SAT 91–98
--- NOTE | 2022-08-29 13:15 | RT.EKG_ITS ---
APPROVED REPORT Exam: Resting ECG Reason for Exam: CHEST PAIN Patient Location: E HR:85 bpm ECG Measurements Heart Rate 85 AXIS HI 201 P 52 QRSd 90 QRS -31 QT 389 T 61 QTc 462 Conclusion Sinus rhythm...normal P axis, V-rate 60- 99 Left axis deviation...QRS axis (-30,-90) Probable anterolateral infarct, acute...ST >0.15mV, V2-V6,I,aVL STEMI Abnormal Electrocardiogram
[2022-08-29] MEDS: nitroGLYcerin 0.4 MG TAB SL (13:44)
--- NOTE | 2022-08-29 13:45 | DI.RAD_ITS ---
Exam(s) XR PORTABLE CHEST AP EXAM: XR PORTABLE CHEST AP CLINICAL HISTORY: chest pain. TECHNIQUE: 2D digital imaging was performed. COMPARISON: CR XR PORTABLE CHEST AP from 08/30/2021 FINDINGS: LUNGS: Clear. No pleural abnormality seen. HEART: Normal. MEDIASTINUM: Normal. OTHER FINDINGS: None. IMPRESSION: No acute pulmonary findings. DATA REPOSITORY: RADIATION DOSE DELIVERED: Total DLP
[2022-08-29] MEDS: nitroGLYcerin in D5W 50 MG/250 ML BTL IV (13:47)
--- NOTE | 2022-08-29 14:00 | W.ED.GENAD ---
Discharge Plan Disposition Patient Disposition: Transfer-Acute Inpatient Care Specific Acute Inpt Facility: [facility] Condition: Critical Discharge Details Clinical Impression: ST elevation (STEMI) myocardial infarction Primary Care Provider: Pham Blackwood ED Provider: Luca Mitchell Home Meds and New Rx's Prescriptions: No Action levothyroxine 88 mcg capsule 88 mcg PO DAILY budesonide 3 mg capsule,delayed,extend.release 3 mg PO DAILY PRN furosemide 40 mg tablet 40 mg PO DAILY Qty: 90 3RF allopurinol 100 MG tablet 100 mg PO BID aspirin 81 MG tablet,delayed release (DR/EC) 81 mg PO DAILY ESSENTIAL Daily 1 EACH tablet 1 ea PO DAILY losartan 50 mg tablet 50 mg PO DAILY levothyroxine [Synthroid] 88 mcg tablet 1 tab PO DAILY Slow-Mag 71.5 mg Tablet,Delayed Release (Dr/Ec) 71.5 mg PO BID pravastatin 10 mg Tablet 10 mg PO HS carvedilol [Coreg] 6.25 mg Tablet 6.25 mg PO BID Qty: 60 0RF amlodipine 5 mg Tablet 5 mg PO DAILY Qty: 30 0RF Discharge Data Discharge Date/Time-TO BE ENTERED AT DEPARTURE: 08/29/22 15:36 Medical Decision Making 1400 --81-year-old female with history of cardiomyopathy, EF of 45 to 50%, abdominal aortic aneurysm, aortic stenosis, history of thyroid cancer, history of tobacco abuse, hyperlipidemia, chronic stage III kidney disease, COPD, here with chest pain that started suddenly around 1215. EKG was reviewed and interpreted by me: STEMI, sinus rhythm 85 bpm, greater than [address] elevation in V3 to V5. Patient does note she has a living well but is agreeable to aggressive interventions today including catheterization and stenting. Patient provided informed consent to treat with thrombolytic. I have initiated treatment with TNK 35 mg based on weight. Nitroglycerin sublingual given and infusion started. Plavix 75 mg given. Aspirin 325 was provided by EMS. Plan to start heparin bolus with drip. I called [facility] transfer center to request emergent transfer for unstable patient and alerted them to STEMI, transfer center declined due to capacity noting only receiving sems scene STEMI's at this time. I immediately called [facility] transfer center to request transfer, EKG sent for review, awaiting callback from interventional cardiology. 1415 --I spoke with Dr. Choudhury at [facility], discussed ED presentation and course including diagnostics and treatment, he agrees to accept the patient in transfer. There are no air units available due to weather. Will identify ground registered nurses unit for transfer. --Pain resolved with nitroglycerin infusion. 1507 -- Mulitple calls to surrounding ground ambulance units, no one available for transport. I spoke with charge nurse and boiler house mechanic and we have identified a nurse who is coming in from home to perform ground transport with local EMS team. Patient provided verbal consent to transfer and is agreeable to catheterization for treatment. Patient now having recurrent severe pain. Titrating nitroglycerin drip up. I will give Dilaudid 1 mg IV. Medical Records Medical records reviewed: Yes I reviewed the patient's medical records. Medical records narrative: echo 05/14 EF45-50% Lab Data Lab results reviewed: Yes I reviewed the patient's lab results. Labs: Laboratory Tests Range/Units 08/29/22 08/29/22 08/29/22 14:05 14:05 14:05 WBC (4.4-10.8) 10^3/uL 13.33 H RBC (3.93-5.22) 10^6/uL 3.21 L Hgb (11.2-15.7) g/dL 10.5 L Hct (36.0-46.0) % 31.1 L MCV (80-95) fL 97 H MCH (27.0-33.0) pg 32.7 MCHC (32.0-36.0) % 33.8 RDW (11.7-14.6) % 16.1 H Plt Count (130-400) 10^3/uL 244 MPV (8.0-11.0) fL 10.8 Immature Gran % 0.5 Neutrophils % 73.2 Lymphocytes % 16.1 Monocytes % 7.6 Eosinophils % 1.9 Basophils % 0.7 Nucleated RBC % (0.0-0.3) % 0.0 Absolute Neutrophils (1.2-6.7) 10^3/uL 9.76 H Absolute Lymphocytes (1.2-3.4) 10^3/uL 2.15 Absolute Monocytes (0.1-0.8) 10^3/uL 1.01 H Absolute Eosinophils (0.0-0.7) 10^3/uL 0.25 Absolute Basophils (0.0-0.2) 10^3/uL 0.09 PT (9.3-11.0) sec 9.7 INR (0.9-1.1) 1.0 APTT (21.0-27.5) sec 24.1 Sodium (136-145) mmol/L 137 Potassium (3.5-5.1) mmol/L 3.7 Chloride (98-107) mmol/L 101 Carbon Dioxide (21.0-32.0) mmol/L 27.6 Anion Gap (3-11) mmol/L 8.4 BUN (7-18) mg/dL 32 H Creatinine (0.55-1.02) mg/dL 2.1 H Est GFR (CKD-EPI 2020) (mL/min/1.73m2) 23.09 Glucose (74-106) mg/dL 142 H Calcium (8.5-10.1) mg/dL 8.7 Magnesium (1.8-2.4) mg/dL 2.2 Total Bilirubin (0.2-1.0) mg/dL 0.5 AST (15-37) U/L 20 ALT (14-59) U/L 12 L Alkaline Phosphatase (46-116) U/L 67 Troponin I (<or=60) ng/L 1026 H* Total Protein (6.4-8.2) g/dL 7.0 Albumin (3.4-5.0) g/dL 3.3 L Sign Out No HPI General Mode of arrival: EMS. Date/Time Provider Initiated Documentation: 08/29/22 13:48. Limitations to Documentation: other (acuity of condition). Information obtained by: patient and EMS. HPI Narrative: 81-year-old female with multiple medical problems including history of CHF, EF 45 to 50%, abdominal aortic aneurysm, hyperlipidemia, chronic kidney disease stage III, COPD, here with chief complaint of chest pain. Pain started around 1215 suddenly. Pain has been constant and persistent. Related Data Home Medications Medication Instructions Recorded Confirmed ESSENTIAL Daily 18 mg-0.4 mg 1 ea PO DAILY 04/03/13 08/29/22 tablet (cvpoeplcydat-Tc-odqe-minerals) allopurinol 100 mg tablet 100 mg PO BID 04/03/13 08/29/22 aspirin 81 mg tablet,delayed 81 mg PO DAILY 04/03/13 08/29/22 release budesonide 3 mg 3 mg PO DAILY PRN 07/18/18 08/29/22 capsule,delayed,extended release levothyroxine 88 mcg capsule 88 mcg PO DAILY 07/18/18 08/29/22 pravastatin 10 mg tablet 10 mg PO HS 08/31/21 08/29/22 amlodipine 5 mg tablet 5 mg PO DAILY #30 tabs 09/01/21 08/29/22 carvedilol 6.25 mg tablet (Coreg) 6.25 mg PO BID #60 tabs 09/01/21 08/29/22 furosemide 40 mg tablet 40 mg PO DAILY #90 tabs 05/03/22 08/29/22 levothyroxine 88 mcg tablet 1 tab PO DAILY 08/29/22 08/29/22 (Synthroid) losartan 50 mg tablet 50 mg PO DAILY 08/29/22 08/29/22 magnesium chloride 71.5 mg 71.5 mg PO BID 08/29/22 08/29/22 (magnesium chloride) tablet,delayed release (Slow-Mag) Previous Rx's Medication Instructions Recorded amlodipine 5 mg tablet 5 mg PO DAILY #30 tabs 09/01/21 carvedilol 6.25 mg tablet (Coreg) 6.25 mg PO BID #60 tabs 09/01/21 furosemide 40 mg tablet 40 mg PO DAILY #90 tabs 05/03/22 Allergies Allergy/AdvReac Type Severity Reaction Status Date / Time lisinopril AdvReac Intermediate cough Verified 05/03/22 14:43 General Stated Complaint: Chest Pain RASHIDA: 3 Review of Systems Narrative: Limited due to acuity of condition Cardiovascular Cardiovascular: Reports chest pain Respiratory Respiratory: Denies cough PFSH All Active Problems (Updated 08/29/22 @ 14:08 by Luca Mitchell MD) ST elevation (STEMI) myocardial infarction (Acute) Aortic regurgitation (Acute) Combined systolic and diastolic heart failure (Acute) Acute kidney injury superimposed on chronic kidney disease (Acute) Palpitations (Acute) Hypertension (Acute) Cardiomyopathy (Acute) Hypertensive emergency (Acute) Tobacco abuse (Chronic) Discharge planning issues (Acute) DVT prophylaxis (Acute) Acute combined systolic (congestive) and diastolic (congestive) heart failure (Acute) Acute respiratory distress (Acute) Pulmonary edema (Acute) Medical History Abdominal aortic aneurysm Aortic stenosis Chronic insomnia Collagenous colitis Diastolic heart failure Elevated sed rate Gout History of hepatitis History of thyroid cancer History of tobacco abuse Hyperlipidemia Hypermagnesemia Impaired fasting glucose Kidney disease, chronic, stage III (GFR 30-59 ml/min) Macrocytosis Mitral regurgitation 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 Surgical History H/O excision of epidermal inclusion cyst Family History Brother Cancer prostate cancer Brother Heart disease Brother ESRD (end stage renal disease) Social History Smoking/Tobacco Use Status: Current every day Tobacco Type: cigarettes Smoking packs per day: 0.5 Smoking cigarettes per day: 10.0 Years smoked: 61 Smoking pack-years: 30.50 Tobacco: How many years used: 61 Counseling given: provider counseling and support medications Smoking risk assessment performed?: Yes Alcohol Intake: never Drug use: Never Substance use type: does not use Do you feel safe at home: Yes Do you feel safe in your relationship?: Yes Exam Const General: cooperative and uncomfortable Orientation: alert and awake HENMT Mouth: moist mucous membranes Eyes Conjunctivae: normal conjunctivae Sclera: normal sclerae Neck Neck: trachea midline and supple Resp Auscultation: clear to auscultation bilaterally, no rales, no rhonchi and no wheezes Cardio Rate: regular rate and not tachycardic Rhythm: regular rhythm Heart Sounds: no gallops, no murmurs and no rubs GI Palpation: soft, not firm, no guarding, no masses, not rigid and nontender Auscultation: normal bowel sounds Skin General skin exam: no rashes or lesions noted Neuro General: patient alert, patient awake and tone normal Extrem General: no calf tenderness and no edema Psych Appearance: grossly normal Mental Status: mental status grossly normal Course Vital Signs Vital signs: Vital Signs Temperature 36.3 C L 08/29/22 13:39 Pulse 96 H 08/29/22 13:39 Respiratory Rate 22 08/29/22 13:39 Blood Pressure 138/83 08/29/22 13:39 Pulse Oximetry 98 08/29/22 13:39 Temperature 36.3 C L 08/29/22 13:39 Temperature Source Tympanic 08/29/22 13:39 Pulse 96 H 08/29/22 13:39 Respiratory Rate 22 08/29/22 13:39 Blood Pressure 138/83 08/29/22 13:39 Blood Pressure Position Supine 08/29/22 13:39 Pulse Oximetry 98 08/29/22 13:39 Oxygen Delivery Method Room Air 08/29/22 13:39 Oxygen Flow Rate 0 08/29/22 13:39 Pain Level 10 08/29/22 13:44 Critical Care Time Critical Care Time Critical Care Time: Yes Total Critical Care Time: 50 Attestation: I spent greater than 50 minutes addressing this patient's immediate life threats. Please see MDM section of note. This time was spent engaged in work directly related to the patient's care, exclusive of separate procedures, and failure to initiate these interventions would have likely resulted in clinically significant or life threatening deterioration in the patient's condition.
[2022-08-29] MEDS: Tenecteplase 50 MG KIT 35 MG IVP (14:08)
[2022-08-29] MEDS: Clopidogrel 75 MG TAB PO (14:11)
[2022-08-29 14:15] LABS: Abs Immature Grans 0.06 10^3/uL (0.0-0.06); Absolute Basophil Count 0.09 10^3/uL (0.0-0.2); Absolute Eosinophil Count 0.25 10^3/uL (0.0-0.7); Absolute Lymphocyte Count 2.15 10^3/uL (1.2-3.4); Absolute Monocyte Count 1.01 10^3/uL (0.1-0.8); Absolute Neutrophil Count 9.76 10^3/uL (1.2-6.7); Basophils % 0.7; Eosinophils % 1.9; HCT 31.1 % (36.0-46.0); HGB 10.5 g/dL (11.2-15.7); Immature Grans % 0.5; Lymphocytes % 16.1; MCH 32.7 pg (27.0-33.0); MCHC 33.8 % (32.0-36.0); MCV 97 fL (80-95); MPV 10.8 fL (8.0-11.0); Monocytes % 7.6; Neutrophils % 73.2; Platelet Count 244 10^3/uL (130-400); RBC 3.21 10^6/uL (3.93-5.22); RDW 16.1 % (11.7-14.6); RDW-SD 56.8 fL; WBC 13.33 10^3/uL (4.4-10.8)
[2022-08-29 14:42] LABS: ALT 12 U/L (14-59); AST 20 U/L (15-37); Albumin 3.3 g/dL (3.4-5.0); Alkaline Phosphatase 67 U/L (46-116); Anion Gap 8.4 mmol/L (3-11); BUN 32 mg/dL (7-18); Bilirubin, Total 0.5 mg/dL (0.2-1.0); CO2 27.6 mmol/L (21.0-32.0); CREATININE 2.1 mg/dL (0.55-1.02); Calcium 8.7 mg/dL (8.5-10.1); Chloride 101 mmol/L (98-107); Estimated GFR 23.09 (mL/min/1.73m2); Glucose 142 mg/dL (74-106); Magnesium 2.2 mg/dL (1.8-2.4); Potassium 3.7 mmol/L (3.5-5.1); Sodium 137 mmol/L (136-145)
[2022-08-29 14:43] LABS: PTT Activated 24.1 sec (21.0-27.5); Prothrombin Time 9.7 sec (9.3-11.0)
[2022-08-29 14:45] LABS: Troponin I 1026 ng/L (<or=60)
[2022-08-29] MEDS: HYDROmorphone 2 MG/ML SYR 1 MG IVP (15:07)
== END 2022-08-29 15:36 | disposition short-term general hospital (02) ==
LOC: ER 14:59
PROVIDERS: Emergency Provider Student in an Organized Health Care Education/Training Program; PCP Family Medicine
DX: I21.3 ST elevation (STEMI) myocardial infarction of unspecified site (principal); I50.30 Unspecified diastolic (congestive) heart failure; J44.9 Chronic obstructive pulmonary disease, unspecified; N18.30 Chronic kidney disease, stage 3 unspecified; Z79.82 Long term (current) use of aspirin; Z79.52 Long term (current) use of systemic steroids
CPT/HCPCS: 80053; 87635; 93005; 96365; 96368; 96375; 99285; 71045; 83735; 84484; 85025; 85610; 85730; 93010; J1170; J3101